=== PATIENT | female | born 1955 | race Caucasian/White ===

== ENCOUNTER 2016-05-19 16:58 | Observation (INO) | payer BC, MEDICARE ==
[~2016-05-19] VITALS: Ht 167.6 cm; Wt 128.1 kg
[~2016-05-19 16:58] MED LIST: ALBU2.5V7 PO; ASPI81TA2 PO; ATOR10TA20 PO; AZIT250T6 PO; BACL-1 PO; FURO40TA5 PO; GABA-329 PO; INSU100I3 SQ; INSU300I SQ; LANS30CA44 PO; LISI-127 PO; METF500T7 PO; METH4TAB15 PO; METO10TA3 PO; MOME13HF2 INH; NITR0.4T39 PO; OXYC15TA PO; POTA-81 PO; SERT100T12 PO; SPIR25TA4 PO; TAPE200T PO
--- OUTSIDE RECORDS SUMMARY | 2016-05-19 17:03 | XMS REPORT | Continuity of Care Document ---
Author Author [facility] Organization [facility] Address Unknown Phone Unavailable Support Name Relationship Address Phone VAN HARDEN Caregiver [address] [place] [address] Unavailable APOLINAR FISHER MD Caregiver [address] [place] [address] Unavailable HALEYWINSTON BRIZUELA Tabitha Next Of Kin [address] [place] [address] Insurance Providers Guarantor Radhika Guadarrama Address [address] [place] [address] Email DENIED/NO TO PT [facility] Number [id number] Subscriber's Name Winston Guadarrama Relationship 01 Spouse Group Number [id number] Payer Medicare Part A Only Policy Number [id number] Subscriber's Name Radhika Guadarrama Relationship 18 Self Advance Directives Directive Response Recorded Date/Time Advanced Directives Type None 07/18/13 3:33pm Ordered Resuscitation Status Full Code 07/18/13 2:43pm Chief Complaint and Reason for Visit Chief Complaint Low Back Pain or Injury Reason for Visit Lumbar pain Problems Active Problems Medical Problem Onset Date Status Abrasion of face Unknown Acute Acute superficial venous thrombosis of right lower extremity Unknown Acute Acute superficial venous thrombosis of right lower extremity Unknown Acute Back pain, chronic Unknown Chronic Chest pain, rule out acute myocardial infarction Unknown Acute Chest pain, rule out acute myocardial infarction Unknown Acute Dyslipidemia Unknown Chronic Epistaxis Unknown Acute Epistaxis Unknown Acute GERD (gastroesophageal reflux disease) Unknown Chronic HTN (hypertension) Unknown Chronic Hypokalemia Unknown Resolved Lumbar pain Unknown Acute Morbid obesity with BMI of 40.0-44.9, adult Unknown Chronic Neck pain, acute Unknown Acute Tobacco dependence Unknown Acute Past Problems Medical Problem Onset Date Hemorrhoids Unknown Medications Current Home Medications Medication Dose Units Route Directions Days Qty Instructions Start Date Albuterol Sulfate 2.5 Mg/3 Ml Vial.neb 2.5 Mg Oral Every 6 Hours as needed for Prn Orders 03/09/16 Aspirin 81 Mg Tab.chew 81 Mg Oral Daily 01/04/15 Atorvastatin Calcium (Lipitor) 10 Mg Tablet 10 Mg Oral Daily Azithromycin 250 Mg Tablet 250 Mg Oral Daily 03/09/16 Baclofen 10 Mg Tablet 10 Mg Oral Four Times Daily 06/06/11 Furosemide 40 Mg Tablet 40 Mg Oral Twice A Day 01/04/15 Gabapentin 800 Mg Tablet 800 Mg Oral Three Times A Day 01/04/15 Insulin Aspart (Novolog Flexpen) 1 Unit Pen 10 Unit Sub-Q Four Times Daily 03/09/16 Insulin Glargine,Hum.rec.anlog (Toujeo Solostar) 300 Unit/1 Ml Insuln.pen 20 Unit Sub-Q Bedtime 03/09/16 Lansoprazole (Prevacid) 30 Mg Capsule.dr 30 Mg Oral Twice A Day 09/02/09 Lisinopril 10 Mg Tablet 10 Mg Oral Daily 09/02/09 Metformin Hcl (Metformin Hcl Er) 500 Mg Tab.er.24h 500 Mg Oral Twice A Day 01/04/15 Methylprednisolone 4 Mg/Dose Tablet 1 Dose Oral As Directed 03/09 Metoclopramide Hcl 10 Mg Tablet 10 Mg Oral Four Times Daily 11/05 Mometasone Furoate (Asmanex Hfa) 13 Gm Hfa.aer.ad 2 Puff Inhalation Twice A Day as needed for Prn Orders 03/09/16 Nitroglycerin 0.4 Mg Tab.subl 0.4 Mg Oral Every 5 Minutes X 3 as needed for Chest Tightness 03/09/16 Oxycodone Hcl 15 Mg Tablet 15-30 Mg Oral Every 3-4 Hours 07/18/13 Potassium Chloride 20 Meq Tablet.er 20 Meq Oral Twice Daily With Meals 05/16/14 Sertraline Hcl (Sertraline) 100 Mg Tablet 100 Mg Oral Bedtime 09/15 Spironolactone 25 Mg Tablet 25 Mg Oral Daily 01/04/15 Tapentadol Hcl (Nucynta Er) 200 Mg Tab.er.12h 200 Mg Oral Every 12 Hours 08/08/15 Past Home Medications Medication Directions Ordered Status Aspirin (Aspir 81) 81 Mg Tablet.dr, Oral 3X Week 09/02/09 Discontinued Citalopram Hydrobromide (Celexa) 40 Mg Tablet, 1 Tab Oral Daily 02/10/14 Discontinued Furosemide , 11/27/08 Discontinued Hydrocodone Bit/Acetaminophen (Lortab 10-500 Tablet) 1 Tab Tablet, 1 Tab Oral As Needed 06/06/11 Discontinued Hydrocodone Bit/Acetaminophen (Lortab 10-500 Tablet) 1 Tab Tablet, 1 Tab Oral As Needed 09/02/09 Discontinued Metoclopramide Hcl 10 Mg Tablet, 1 Tab Oral Twice A Day 09/02/09 Discontinued Oxycodone Hcl/Acetaminophen (Percocet 10/325 Mg Tablet) 1 Tab Tablet, 1 Tab Oral As Needed 11/06/11 Discontinued Tapentadol Hcl (Nucynta) 100 Mg Tablet, 200 Mg Oral Every 12 Hours 01/04/15 Discontinued Social History Social History Problem Response Recorded Date/Time Onset Date Status Chewing Tobacco Status No 03/09/2016 5:08pm Not Applicable Not Applicable Hx Substance Use No 03/09/2016 5:08pm Not Applicable Not Applicable Hx Alcohol Use No 03/09/2016 5:08pm Not Applicable Not Applicable Has the pt used tobacco in the last 12 months Yes 07/18/2013 3:34pm Not Applicable Not Applicable Tobacco Usage smoke 07/18/2013 4:39pm Not Applicable Not Applicable Query Response Start Date Stop Date Smoking Status Heavy Smoker Hospital Discharge Instructions No hospital discharge instructions. Plan of Care Discharge Date 03/09/16 6:50pm Disposition DISCHARGED HOME, SELF-CARE Condition at Discharge Stable Instructions/Education Provided Sacroiliac Joint Pain Prescriptions See Medication Section Referrals VAN HARDEN Address: [address] [phone] Note: follow up this week if not improving. Additional Instructions/Education COMPLETE STEROIDS PRESCRIBED BY YOUR DOCTOR. ICE PACKS, 20 MINUTES ON AND 20 MINUTES OFF, TOLERATED. CONTINUE PAIN MEDICATION PRESCRIBED. Functional Status No functional status results. Allergies, Adverse Reactions, Alerts Allergen Type Severity Reaction Status Last Updated Penicillin Allergy Unknown EDEMA Active 03/09/16 Sulfa (Sulfonamide Antibiotics) Allergy Unknown Active 03/09/16 BANDAIDE Allergy Unknown Active 05/15/14 Immunizations Query Response on File Recorded Date/Time Hx Influenza Vaccination Y DEC 2013 05/16/14 1:09am Hx Pneumococcal Vaccination Y fall05/16/14 1:09am Hx Tetanus, Diptheria, Pertussis Y UNKNOWN 05/16/14 1:09am Hx Influenza Vaccination Y DEC 2013 05/16/14 1:09am Hx Tetanus, Diptheria, Pertussis Y UNKNOWN 03/16/15 1:09am DTaP Vaccine History JANUARY 04, 2015 03/09/16 5:08pm Influenza Vaccine Hx DECEMBER 2014 03/09/16 5:08pm Tdap Vaccine Hx 01/04/15 01/04/15 7:02am Vital Signs Acute Vital Signs Vital Response Date/Time Temperature (Fahrenheit) 97.8 deg F (96.8 - 99.1) 03/09/2016 6:50pm Temperature (Calculated Celsius) 36.67096 degrees C (36.0 - 37.3) 03/09/2016 6:50pm Pulse Rate (adult) 85 bpm (60 - 100) 03/09/2016 6:50pm Respiratory Rate 14 breaths/min (10 - 20) 03/09/2016 6:50pm O2 Sat by Pulse Oximetry 94 % (90 - 100) 03/09/2016 6:50pm Blood Pressure 119/67 mm Hg 03/09/2016 6:50pm Blood Pressure 119/67 mm Hg 03/09/2016 6:50pm Height (Feet) 5 feet 03/09/2016 4:35pm Height (Inches) 7.00 inches 03/09/2016 4:35pm Weight (Kilograms) 121.000 kg 03/09/2016 4:35pm Body Mass Index (BMI) 41.0 03/09/2016 4:35pm Results Laboratory Results Test Name Result Units Flags Reference Collection Date/Time Result Date/ Time Comments Icterus Index < 2 0-7 12/22/2015 4:56pm 12/22/2015 5:09pm Chemistry Specimen Hemolysis < 15 0-25 12/22/2015 4:56pm 12/22/2015 5 :09pm 0-25: Specimen Exhibited No Hemolysis. Turbidity < 20 0-20 12/22/2015 4:56pm 12/22/2015 5:09pm Sodium Level 144 MEQ/L 134-144 12/22/2015 4:56pm 12/22/2015 5:09pm Potassium Level 3.9 MEQ/L 3.6-5 12/22/2015 4:56pm 12/22/2015 5:09pm Chloride Level 100 MEQ/L 98-107 12/22/2015 4:56pm 12/22/2015 5:09pm Carbon Dioxide Level 30 MEQ/L 22-30 12/22/2015 4:56pm 12/22/2015 5: 09pm Anion Gap 14 MEQ/L 5-15 12/22/2015 4:56pm 12/22/2015 5:09pm Blood Urea Nitrogen 12.0 MG/DL 7-17 12/22/2015 4:56pm 12/22/2015 5: 09pm Creatinine 0.8 MG/DL 0.7-1.2 12/22/2015 4:56pm 12/22/2015 5:09pm BUN/Creatinine Ratio 15 RATIO 6-26 12/22/2015 4:56pm 12/22/2015 5:09pm Glomerular Filtration Rate Calc 74 12/22/2015 4:56pm 12/22/2015 5: 09pm Glucose Level 149 MG/DL H 65-110 12/22/2015 4:56pm 12/22/2015 5:09pm Calculated Osmolality 280 MOSM/KG 261-280 12/22/2015 4:56pm 12/22/2015 5:09pm Calcium Level 9.4 MG/DL 8.4-10.2 12/22/2015 4:56pm 12/22/2015 5:09pm Hemoglobin A1c 7.3 % 6.1-7.9 12/22/2015 4:56pm 12/22/2015 5:07pm <6.0 NON-DIABETIC RANGE 6.1-7.9 [facility] TARGET RANGE >8.0 ACTION SUGGESTED Procedures Procedure Status Date Provider(s) Routine venipuncture Completed 12/22/15 Metabolic panel total ca Completed 12/22/15 Glycosylated hemoglobin test Completed 12/22/15 Encounters Encounter Location Arrival/Admit Date Discharge/Depart Date Attending Provider Departed Emergency Room [facility] 03/09/16 4:34pm 03/09/16 6: 50pm APOLINAR FISHER MD Registered Clinic [facility] 12/22/15 4:46pm VAN HARDEN Recent Diagnosis
--- OUTSIDE RECORDS SUMMARY | 2016-05-19 17:03 | XMS REPORT | Summary of Care ---
Author Author Houston Russ M.D. Organization Unknown Address Unknown Phone Unavailable Care Team Providers Care Railway Shunter Name Role Phone Houston Russ M.D. Unavailable Unavailable Kaushik Redmond Unavailable Unavailable Functional Status Name Dates Details Functional status health issues are not documented Status: Name Dates Details Cognitive status health issues are not documented Status: Problems Name Dates Details Active medical history not documented Status: Medications Name Dates Details Atorvastatin Calcium 10 MG Oral Tablet TAKE 1 TABLET DAILY DIRECTED. * Start 07-May-2016 Active Lansoprazole 30 MG Oral Capsule Delayed Release TAKE 1 CAPSULE TWICE DAILY. * Refills: 0 * Start 07-May-2016 Active MetFORMIN HCl - 500 MG Oral Tablet Take 1 tablet twice daily * Quantity: 180 Refills: 0 * Start 07-May-2016 Active Metoclopramide HCl - 10 MG Oral Tablet TAKE 1 TABLET 4 TIMES DAILY, BEFORE MEALS AND AT BEDTIME. * Refills: 0 * Start 07-May-2016 Active Sertraline HCl - 100 MG Oral Tablet TAKE 1 AND 1/2 TABLETS DAILY. * Refills: 0 * Start 07-May-2016 Active Furosemide 40 MG Oral Tablet Take one tablet by mouth twice a day * Quantity: 60 Refills: 0 * Start 07-May-2016 Active Lisinopril 10 MG Oral Tablet TAKE 1 TABLET EVERY DAY * Quantity: 90 Refills: 0 * Start 07-May-2016 Active Potassium Chloride 20 MEQ Oral Packet TAKE 1 PACKET TWICE DAILY, 1/2 HOUR BEFORE MEALS. * Refills: 0 * Start 07-May-2016 Active Spironolactone 25 MG Oral Tablet TAKE 1 TABLET BY MOUTH DAILY * Quantity: 30 Refills: 0 * Start 07-May-2016 Active Gabapentin 800 MG Oral Tablet TAKE 1 TABLET 3 TIMES DAILY. * Refills: 0 * Start 07-May-2016 Active Aspirin 81 MG Oral Tablet Delayed Release take 1 tablet by mouth every day * Refills: 0 * Start 07-May-2016 Active OxyCODONE HCl - 15 MG Oral Tablet TAKE 1 TABLET EVERY 3-4 HOURS NEEDED FOR PAIN. * Refills: 0 * Start 07-May-2016 Active Nucynta ER 200 MG Oral Tablet Extended Release 12 Hour Take 1 tablet twice daily * Refills: 0 * Start 07-May-2016 Active Baclofen 10 MG Oral Tablet TAKE 1 TABLET 4 TIMES DAILY. * Refills: 0 * Start 07-May-2016 Active NovoLIN 70/30 (70-30) 100 UNIT/ML Subcutaneous Suspension INJECT 10 UNIT 4 times daily * Refills: 0 * Start 07-May-2016 Active Toujeo SoloStar 300 UNIT/ML Subcutaneous Solution Pen-injector INJECT 20 UNIT Bedtime * Refills: 0 * Start 07-May-2016 Active Fluticasone Propionate 50 MCG/ACT Nasal Suspension 2 squirts ea nostril once daily * Quantity: 1 Refills: 2 * Start 07-May-2016 Active 16 GM Bottle Allergies and Adverse Reactions Name Dates Details Penicillins (Allergy) Status: Active Sulfa Drugs (Allergy) Status: Active Adhesive Tape (Allergy) Status: Active Past Medical History Name Dates Details History of degenerative disc disease (V13.59, Z87.39) Status: Resolved History of gastric ulcer (V12.79, Z87.19) Status: Resolved Procedures Procedure Dates Details History of Back Surgery History of Hysterectomy History of Cholecystectomy Procedures not documented Immunization Name Dates Details Immunizations not documented Family History Name Dates Details Family history of cardiac disorder (V17.49, Z82.49) Status: Active Family history of hypertension (V17.49, Z82.49) Status: Active Family history of hyperlipidemia (V18.19, Z83.49) Status: Active Name Dates Details Family history of Diabetes type 2, controlled (250.00, E11.9) Status: Active Name Dates Details Family history of Diabetes type 2, controlled (250.00, E11.9) Status: Active Social History Name Dates Details - Status: Name Dates Details Current every day smoker Vital Signs Date Test Result Details 07-May-2016 14:38 Temperature 97.3 f Status: Comments: Method: Heart Rate 114 /min Status: Comments: Location: ; Physical Findings 20 Status: Comments: Respiration Height 66 in Status: Weight 276 lb Status: Physical Findings 96 Status: Comments: O2 Saturation Body Mass Index Calculated 44.55 kg/m2 Status: Body Surface Area Calculated 2.29 m2 Status: Results Date Description Value Details Results not documented Plan of Care Name Dates Details Planned Observations Planned Goals not documented Planned Encounters Appointment; Provider: Houston Russ M.D. On 18-Jun-2016 13:00 Instructions Name Dates Details Instructions not documented Encounters Appointment; Houston Russ M.D. Encounter Diagnosis: Problem not documented On 07-May-2016 13:30
--- OUTSIDE RECORDS SUMMARY | 2016-05-19 17:04 | XMS REPORT | Continuity of Care Document ---
Author Author [facility] Organization [facility] Address Unknown Phone Unavailable Support Name Relationship Address Phone JODY CAMPOS DO Caregiver [facility] [address] [place] [address] DERECKVAN NIEVES Caregiver [address] [place] [address] WINSTON GUADARRAMA Next Of Kin [address] [place] [id number] Insurance Providers Payer Name Policy Number Subscriber Name Relationship [facility] [id number] Winston Guadarrama 01 Spouse Advance Directives Directive Response Recorded Date/Time Advanced Directives Type None 07/18/13 3:33pm Ordered Resuscitation Status Full Code 07/18/13 2:43pm Problems Medical Problems Problem Onset Date Status Chest pain, rule out acute myocardial infarction Unknown Active Chest pain, rule out acute myocardial infarction Unknown Active Dyslipidemia Unknown Active HTN (hypertension) Unknown Active Tobacco dependence Unknown Active GERD (gastroesophageal reflux disease) Unknown Active Back pain, chronic Unknown Active Morbid obesity with BMI of 40.0-44.9, adult Unknown Active Hypokalemia Unknown Resolved Acute superficial venous thrombosis of right lower extremity Unknown Active Acute superficial venous thrombosis of right lower extremity Unknown Active Epistaxis Unknown Active Epistaxis Unknown Active Medications Medication Dose Route Sig Days/Qty Instructions Order Date Discontinued Date Status Aspirin PO 3X WEEK 09/02/09 07/18/13 Discontinued Sucralfate 2 Tsp PO FOUR TIMES DAILY 09/02/09 Active [Furosemide] 11/27/08 09/02/09 Discontinued Lisinopril 10 Mg PO DAILY 09/02/09 Active Metoclopramide Hcl 1 Tab PO TWICE A DAY 09/02/09 06/06/11 Discontinued Lansoprazole 30 Mg PO DAILY 09/02/09 Active [Vitamin] PO DAILY 09/02/09 Active Hydrocodone Bit/Acetaminophen 1 Tab PO NEEDED 09/02/09 03/11/10 Discontinued Furosemide 10 Mg PO DAILY 09/02/09 Active Gabapentin 600 Mg PO THREE TIMES A DAY 06/06/11 Active Baclofen 10 Mg PO TWICE A DAY 06/06/11 Active Hydrocodone Bit/Acetaminophen 1 Tab PO NEEDED 06/06/11 11/06/11 Discontinued Metoclopramide Hcl 10 Mg PO TWICE A DAY 11/06/11 Active Oxycodone Hcl/Acetaminophen 1 Tab PO NEEDED 11/06/11 07/18/13 Discontinued Atorvastatin Calcium 10 Mg PO DAILY 07/18/13 Active Oxycodone Hcl 15 Mg PO EVERY 3-4 HOURS 07/18/13 Active Citalopram Hydrobromide 1 Tab PO DAILY 02/10/14 Active Clonazepam 1 Tab PO BEDTIME 02/10/14 Active Tapentadol HCl 02/10/14 Active Rivaroxaban 15 Mg PO TWICE DAILY WITH MEALS Take 1 tablet, by mouth, 2 times a day with meals. 05/16/14 Active Potassium Chloride 20 Meq PO TWICE DAILY WITH MEALS 05/16/14 Active Social History Social History Problem Response Recorded Date/Time Hx Substance Use No 05/16/2014 1:09am Hx Alcohol Use No 05/16/2014 1:09am Has the pt used tobacco in the last 12 months Yes 07/18/2013 3:34pm Tobacco Usage smoke 07/18/2013 4:39pm Query Response Start Date Stop Date Smoking Status Heavy Smoker Hospital Discharge Instructions No hospital discharge instructions. Plan of Care No plan of care. Functional Status Query Response Date Recorded Physical Hygiene Self May 16, 2014 1:09am Disabilities Visual May 16, 2014 1:09am Devices Used Walker May 16, 2014 1:09am Dressing Self May 16, 2014 1:09am Ambulation Self May 16, 2014 1:09am Diet Self May 16, 2014 1:09am Mental Status Alert May 16, 2014 1:09am Disabilities Visual May 16, 2014 1:09am Devices Used Walker May 16, 2014 1:09am Physical Hygiene Self May 16, 2014 1:09am Dressing Self May 16, 2014 1:09am Ambulation Self May 16, 2014 1:09am Diet Self May 16, 2014 1:09am Allergies, Adverse Reactions, Alerts Allergen Type Severity Reaction Status Last Updated Penicillin Allergy Unknown EDEMA Active 05/15/14 Sulfa (Sulfonamide Antibiotics) Allergy Unknown Active 05/15/14 BANDAIDE Allergy Unknown Active 05/15/14 Immunizations Name Given Type Hx Influenza Vaccination Y DEC 2013 Historical Hx Pneumococcal Vaccination Y fall Historical Hx Tetanus, Diptheria, Pertussis Y UNKNOWN Historical Hx Influenza Vaccination Y DEC 2013 Historical Hx Tetanus, Diptheria, Pertussis Y UNKNOWN Historical Vital Signs Acute Vital Signs Vital Response Date/Time Temperature (Fahrenheit) 96.4 deg F (96.8 - 99.1) Temperature (Calculated Celsius) 35.58292 degrees C (36.0 - 37.3) Pulse Rate (adult) 77 bpm (60 - 100) Respiratory Rate 20 breaths/min (10 - 20) O2 Sat by Pulse Oximetry 95 % (90 - 100) Blood Pressure 159/87 mm Hg Height 5 ft 6 in Weight 281 lb Body Mass Index 45.0 kg/m^2 Results Test Source Date Result Interp. Ref. Range Comments Activated Partial Thromboplast Time July 18, 2013 1:28pm 30.1 SEC N 24- 36 Alanine Aminotransferase (ALT/SGPT) July 18, 2013 1:28pm 36 U/L N 9-52 Albumin July 18, 2013 1:28pm 3.8 G/DL N 3.5-5.0 Albumin/Globulin Ratio July 18, 2013 1:28pm 1.3 RATIO N 1.1-2.2 Alkaline Phosphatase July 18, 2013 1:28pm 81 U/L N 38-126 Amylase Level November 06, 2011 9:30pm 57 U/L N 30-110 Anion Gap April 06, 2014 2:41pm 8 MEQ/L N 5-15 Aspartate Amino Transf (AST/SGOT) July 18, 2013 1:28pm 20 U/L N 14-36 B-Type Natriuretic Peptide December 28, 2010 12:00am < 15 PG/ML L 15-100 BUN/Creatinine Ratio April 06, 2014 2:41pm 10 RATIO N 6-26 Band Neutrophils # December 28, 2010 9:30pm 0.2 T/MM3 - Band Neutrophils % December 28, 2010 9:30pm 1.0 % N 0-6 Basophils # (Auto) September 30, 2013 1:45pm 0.0 T/MM3 N 0-0.[address] RODGERS -- CALL CRITICALS TO [phone] Basophils (%) (Auto) September 30, 2013 1:45pm 0.4 % N 0-[address] RODGERS -- CALL CRITICALS TO [phone] Blood Urea Nitrogen April 06, 2014 2:41pm 6.0 MG/DL L 7-17 Calcium Level April 06, 2014 2:41pm 8.8 MG/DL N 8.4-10.2 Calculated Osmolality April 06, 2014 2:41pm 280 MOSM/KG N 261-280 Carbon Dioxide Level April 06, 2014 2:41pm 33 MEQ/L H 22-30 Chemistry Specimen Hemolysis April 06, 2014 2:41pm < 15 0-25 0-25 : No Hemolysis.26-70: Slight Hemolysis - can falsely elevate K and Urine Protein. 71-285: Moderate Hemolysis - can falsely elevate K, Troponin I, CA 19-9, PTH, CSF GLucose, and Urine Protein, and can falsely decrease Phenytoin. 286-999: Gross Hemolysis - can falsely elevate K, Troponin I, CA 19-9, PTH, CSF Glucose, and Urine Protine, and can falsely decrease Phenytoin. Recommend specimen recollection. Chloride Level April 06, 2014 2:41pm 103 MEQ/L N 98-107 Cholesterol Level July 19, 2013 1:15am 131 MG/DL L 132-199 Cholesterol/HDL Ratio July 19, 2013 1:15am 3.7 RATIO N 0-4.0 Conjugated Bilirubin November 06, 2011 9:30pm 0.00 MG/DL N 0.00-0.30 Creatinine April 06, 2014 2:41pm 0.6 MG/DL L 0.7-1.2 D-Dimer July 18, 2013 1:28pm < 150 NG/ML 0-230 <224 NG/ML=PRESUMPTIVE NEGATIVE FOR PE OR DVT>224 NG/ML=ADDITIONAL EVALUATION FOR PE OR DVT RECOMMENDED Eosinophils # (Auto) September 30, 2013 1:45pm 0.1 T/MM3 N 0-0.[address] RODGERS -- CALL CRITICALS TO [phone] Eosinophils # (Manual) December 28, 2010 9:30pm 0.3 T/MM3 N 0-0.5 Eosinophils % (Manual) December 28, 2010 9:30pm 2.0 % N 0-4 Eosinophils (%) (Auto) September 30, 2013 1:45pm 0.9 % N 0-[address] RODGERS -- CALL CRITICALS TO [phone] Globulin July 18, 2013 1:28pm 2.9 G/DL N 2.4-3.6 Glomerular Filtration Rate Calc April 06, 2014 2:41pm 103 - Glucose Level April 06, 2014 2:41pm 187 MG/DL H 65-110 HDL Cholesterol Direct July 19, 2013 1:15am 35 MG/DL L 40-60 Hematocrit September 30, 2013 1:45pm 44.4 % N 36-[address] RODGERS -- CALL CRITICALS TO [phone] Hemoglobin September 30, 2013 1:45pm 14.7 GM/DL N 12-[address] RODGERS -- CALL CRITICALS TO [phone] Icterus Index April 06, 2014 2:41pm < 2 0-7 Immature Granulocyte # (Auto) September 30, 2013 1:45pm 0.06 T/MM3 H 0.00- 0.[address] RODGERS -- CALL CRITICALS TO [phone] Immature Granulocyte % (Auto) September 30, 2013 1:45pm 0.8 % H 0.0-0.[address] RODGERS -- CALL CRITICALS TO [phone] LDL Cholesterol, Calculated July 19, 2013 1:15am 59.0 L 66-159 Lab Scanned Report April 06, 2014 10:06pm LAB TEST FORM REQUEST - Lipase November 06, 2011 9:30pm 55 U/L N 23-300 Lymphocytes # (Auto) September 30, 2013 1:45pm 1.5 T/MM3 N 1-4.[address] RODGERS -- CALL CRITICALS TO [phone] Lymphocytes # (Manual) December 28, 2010 9:30pm 4.8 T/MM3 N 1-4.8 Lymphocytes % (Manual) December 28, 2010 9:30pm 28.0 % N 23-45 Lymphocytes (%) (Auto) September 30, 2013 1:45pm 19.8 % L 23-[address] RODGERS -- CALL CRITICALS TO [phone] Magnesium Level July 18, 2013 1:28pm 1.6 MG/DL N 1.6-2.3 COMMENT blood in lab Mean Corpuscular Hemoglobin September 30, 2013 1:45pm 29.8 UUG N 26-[address] RODGERS -- CALL CRITICALS TO [phone] Mean Corpuscular Hemoglobin Concent September 30, 2013 1:45pm 33.1 GM/DL N 31 -[address] RODGERS -- CALL CRITICALS TO [phone] Mean Corpuscular Volume September 30, 2013 1:45pm 89.9 UM3 N 80-[address] RODGERS -- CALL CRITICALS TO [phone] Mean Platelet Volume September 30, 2013 1:45pm 9.9 UM3 N 9.4-12.[address] RODGERS -- CALL CRITICALS TO [phone] Monocytes # (Auto) September 30, 2013 1:45pm 0.6 T/MM3 N 0-0.[address] RODGERS -- CALL CRITICALS TO [phone] Monocytes # (Manual) December 28, 2010 9:30pm 1.2 T/MM3 H 0-0.8 Monocytes % (Manual) December 28, 2010 9:30pm 7.0 % N 0-9.0 Monocytes (%) (Auto) September 30, 2013 1:45pm 7.5 % N 0-9.[address] RODGERS -- CALL CRITICALS TO [phone] NW-Omz-W-Type Natriuretic Peptide July 18, 2013 1:28pm 56 PG/ML N 0-175 Rule in cut points: <50 years old=450; 50-75 years old=900; >75 years old=1800; When utilizing ProBNP rule-in cut points, adjustment for impaired renal function is typically not required. Neutrophils # (Auto) September 30, 2013 1:45pm 5.3 T/MM3 N 1.8-7.[address] RODGERS -- CALL CRITICALS TO [phone] Neutrophils # (Manual) December 28, 2010 9:30pm 10.0 T/MM3 H 1.8-7.7 Neutrophils % (Manual) December 28, 2010 9:30pm 58.0 % N 33-66 Neutrophils (%) (Auto) September 30, 2013 1:45pm 70.6 % H 33-[address] RODGERS -- CALL CRITICALS TO [phone] Platelet Count September 30, 2013 1:45pm 211 T/MM3 N 130-[address] RODGERS -- CALL CRITICALS TO [phone] Potassium Level April 06, 2014 2:41pm 3.8 MEQ/L N 3.6-5 Prealbumin July 18, 2013 1:28pm 25.1 MG/DL N 17.6-36.0 COMMENT blood in lab Prothromb Time International Ratio July 18, 2013 1:28pm 0.91 N 0.86-1.10 THERAPUTIC RANGE=2.00-3.00 FOR ANTI-THROMBOSIS THERAPUTIC RANGE=2.50-3.50 FOR IMPLANTED VALVE RDW Standard Deviation September 30, 2013 1:45pm 46.5 FL N 36.9-50.[address] RODGERS -- CALL CRITICALS TO [phone] Reactive Lymphocytes # December 28, 2010 9:30pm 0.7 T/MM3 H 0-0 Reactive Lymphocytes % December 28, 2010 9:30pm 4.0 % H 0-0 Red Blood Count September 30, 2013 1:45pm 4.94 M/MM3 N 4.00-5.[address] RODGERS -- CALL CRITICALS TO [phone] Sodium Level April 06, 2014 2:41pm 144 MEQ/L N 134-144 Tests Not Done November 27, 2008 10:45am Not done - Has specimen been collected/obtained? Y Thyroid Stimulating Hormone (TSH) July 18, 2013 1:28pm 2.19 MIU/L N 0.47- 4.68 COMMENT blood in lab Total Bilirubin July 18, 2013 1:28pm 0.30 MG/DL N 0.20-1.30 Total Protein July 18, 2013 1:28pm 6.7 G/DL N 6.3-8.2 Triglycerides Level July 19, 2013 1:15am 185 MG/DL H 35-135 Troponin I July 19, 2013 1:15am < 0.012 ng/ml 0-0.12 Turbidity April 06, 2014 2:41pm < 20 0-20 Unconjugated Bilirubin November 06, 2011 9:30pm 0.00 MG/DL N 0.00-1.10 Urinalysis Comment September 30, 2013 1:40pm Microscopic not ind. - ORDERED BY DR RODGERS -- CALL CRITICALS TO [phone] Urine Bilirubin September 30, 2013 1:40pm Negative - ORDERED BY DR RODGERS -- CALL CRITICALS TO [phone] Urine Blood September 30, 2013 1:40pm Negative - ORDERED BY DR RODGERS -- CALL CRITICALS TO [phone] Urine Collection Type September 30, 2013 1:40pm Cleancatch-midstream - ORDERED BY DR RODGERS -- CALL CRITICALS TO [phone] Urine Color September 30, 2013 1:40pm Yellow - ORDERED BY DR RODGERS -- CALL CRITICALS TO [phone] Urine Glucose (UA) September 30, 2013 1:40pm Negative - ORDERED BY DR RODGERS -- CALL CRITICALS TO [phone] Urine Ketones September 30, 2013 1:40pm Negative - ORDERED BY DR RODGERS - - CALL CRITICALS TO [phone] Urine Leukocyte Esterase September 30, 2013 1:40pm Negative - ORDERED BY DR RODGERS -- CALL CRITICALS TO [phone] Urine Microscopic Not Indicated November 06, 2011 9:37pm Not indicated - Has specimen been collected/obtained? Y Urine Nitrite September 30, 2013 1:40pm Negative - ORDERED BY DR RODGERS - - CALL CRITICALS TO [phone] Urine Protein September 30, 2013 1:40pm Negative - ORDERED BY DR RODGERS - - CALL CRITICALS TO [phone] Urine Specific [place] September 30, 2013 1:40pm 1.015 - ORDERED BY DR RODGERS -- CALL CRITICALS TO [phone] Urine Turbidity September 30, 2013 1:40pm Clear - ORDERED BY DR RODGERS -- CALL CRITICALS TO [phone] Urine Urobilinogen September 30, 2013 1:40pm 0.2 EU/DL - ORDERED BY DR RODGERS -- CALL CRITICALS TO [phone] Urine pH September 30, 2013 1:40pm 6.5 - ORDERED BY DR RODGERS -- CALL CRITICALS TO [phone] VLDL Cholesterol July 19, 2013 1:15am 37.0 MG/DL H 0-28 Vitamin B12 Level July 18, 2013 1:28pm 372 PG/ML N [phone] COMMENT blood in lab White Blood Count September 30, 2013 1:45pm 7.5 T/MM3 N 4.5-11.[address] RODGERS -- CALL CRITICALS TO [phone] Gram Stain Groin June 06, 2011 10:15pm Procedures Procedure Status Date Provider(s) ROUTINE VENIPUNCTURE completed 04/06/14 METABOLIC PANEL TOTAL CA completed 04/06/14 Encounters Encounter Location Date/Time Departed Emergency Room [facility] 05/15/14 10:09pm Registered Clinic [facility] 04/06/14 2:33pm Recent Diagnosis
--- OUTSIDE RECORDS SUMMARY | 2016-05-19 17:04 | XMS REPORT | Continuity of Care Document ---
Author Author [facility] Organization [facility] Address Unknown Phone Unavailable Support Name Relationship Address Phone MAYKEL WALLER MD Caregiver [address] [place] [address] [place] [phone] VAN HARDEN Caregiver [address] [facility] [place] [address] W[place] GUADARRAMA Next Of Kin [address] [place] [phone] Insurance Providers Payer Name Policy Number Subscriber Name Relationship [facility] [place] [id number] Winston Guadarrama 01 Spouse Advance Directives Directive [...] thrombosis of right lower extremity Unknown Active Medications Medication Dose Route Sig Days/Qty Instructions Order Date Discontinued Date Status Aspirin PO 3X WEEK 09/02/09 07/18/13 Discontinued Sucralfate 2 Tsp PO FOUR TIMES DAILY 09/02/09 Active [Furosemide] 11/27/08 09/02/09 Discontinued Hydrochlorothiazide 25 Mg PO DAILY 09/02/09 Active Lisinopril 10 Mg PO DAILY 09/02/09 Active Metoclopramide Hcl 1 Tab PO TWICE A DAY 09/02/09 06/06/11 Discontinued Lansoprazole 30 Mg PO DAILY 09/02/09 Active Doxepin Hcl 1 Cap PO BEDTIME 09/02/09 Active [Vitamin] PO DAILY 09/02/09 Active [...] Mg PO EVERY 3-4 HOURS 07/18/13 Active Clindamycin Hcl 150 Mg PO THREE TIMES A DAY 07/18/13 Active Aspirin 1 Tab PO DAILY 02/10/14 Active Citalopram Hydrobromide 1 Tab PO DAILY 02/10/14 Active Clonazepam 1 Tab PO BEDTIME 02/10/14 Active Tapentadol HCl 02/10/14 Active Social History Social History Problem Response Recorded Date/Time Has the pt used tobacco in the last 12 months Yes 07/18/2013 3:34pm Tobacco Usage smoke 07/18/2013 4:39pm Query Response Start Date Stop Date Smoking Status Heavy Smoker Hospital Discharge Instructions No hospital discharge instructions. Plan of Care No plan of care. Functional Status Query Response Date Recorded Physical Hygiene Self February 10, 2014 7:35pm Disabilities Visual February 10, 2014 7:35pm Devices Used Glasses February 10, 2014 7:35pm Dressing Self February 10, 2014 7:35pm Ambulation Self February 10, 2014 7:35pm Diet Self February 10, 2014 7:35pm Mental Status Alert February 10, 2014 8:07pm Disabilities Visual February 10, 2014 7:35pm Devices Used Glasses February 10, 2014 7:35pm Physical Hygiene Self February 10, 2014 7:35pm Dressing Self February 10, 2014 7:35pm Ambulation Self February 10, 2014 7:35pm Diet Self February 10, 2014 7:35pm Allergies, Adverse Reactions, Alerts Allergen Type Severity Reaction Status Last Updated Penicillin Allergy Unknown EDEMA Active 02/10/14 Sulfa (Sulfonamide Antibiotics) Allergy Unknown Active 02/10/14 Immunizations Name Given Type Hx Influenza Vaccination Y DEC 2013 Historical Hx Pneumococcal Vaccination Y fall Historical Hx Influenza Vaccination Y DEC 2013 Historical Vital Signs Acute Vital Signs Vital Response Date/Time Temperature (Fahrenheit) 97.4 deg F (96.8 - 99.1) Temperature (Calculated Celsius) 36.26713 degrees C (36.0 - 37.3) Pulse Rate (adult) 99 bpm (60 - 100) Respiratory Rate 16 breaths/min (10 - 20) O2 Sat by Pulse Oximetry 95 % (90 - 100) Blood Pressure 148/77 mm Hg Height 5 ft 6 in [...] 9:30pm 57 U/L N 30-110 Anion Gap September 30, 2013 1:50pm 12 MEQ/L N 5-15 ADD-ON TO TESTING FROM [facility] TODAY; WE SHOULD HAVE ASPECIMEN/SJM Aspartate Amino Transf (AST/SGOT) July 18, 2013 1:28pm 20 U/L N 14-36 B-Type Natriuretic Peptide December 28, 2010 12:00am < 15 PG/ML L 15-100 BUN/Creatinine Ratio September 30, 2013 1:50pm 13 RATIO N 6-26 ADD-ON TO TESTING FROM [facility] TODAY; WE SHOULD HAVE ASPECIMEN/SJM Band Neutrophils # December 28, 2010 9:30pm 0.2 T/MM3 - Band Neutrophils % December 28, 2010 9:30pm 1.0 % N 0-6 Basophils # (Auto) September 30, 2013 1:45pm 0.0 T/MM3 N 0-0.[address] RODGERS -- CALL CRITICALS TO [phone] Basophils (%) (Auto) September 30, 2013 1:45pm 0.4 % N 0-[address] RODGERS -- CALL CRITICALS TO [phone] Blood Urea Nitrogen September 30, 2013 1:50pm 8.0 MG/DL N 7-17 ADD-ON TO TESTING FROM [facility] TODAY; WE SHOULD HAVE ASPECIMEN/SJM Calcium Level September 30, 2013 1:50pm 8.9 MG/DL N 8.4-10.2 ADD-ON TO TESTING FROM [facility] TODAY; WE SHOULD HAVE ASPECIMEN/SJM Calculated Osmolality September 30, 2013 1:50pm 273 MOSM/KG N 261-280 ADD- ON TO TESTING FROM [facility] TODAY; WE SHOULD HAVE ASPECIMEN/SJM Carbon Dioxide Level September 30, 2013 1:50pm 29 MEQ/L N 22-30 ADD-ON TO TESTING FROM [facility] TODAY; WE SHOULD HAVE ASPECIMEN/SJM Chloride Level September 30, 2013 1:50pm 100 MEQ/L N 98-107 ADD-ON TO TESTING FROM [facility] TODAY; WE SHOULD HAVE ASPECIMEN/SJM Cholesterol Level July 19, 2013 1:15am 131 MG/DL L 132-199 Cholesterol/HDL Ratio July 19, 2013 1:15am 3.7 RATIO N 0-4.0 Conjugated Bilirubin November 06, 2011 9:30pm 0.00 MG/DL N 0.00-0.30 Creatinine September 30, 2013 1:50pm 0.6 MG/DL L 0.7-1.2 ADD-ON TO TESTING FROM [facility] TODAY; WE SHOULD HAVE ASPECIMEN/SJM D-Dimer July 18, 2013 1:28pm < 150 NG/ML 0-230 <224 NG/ML=PRESUMPTIVE NEGATIVE FOR PE OR DVT>224 NG/ML=ADDITIONAL EVALUATION FOR PE OR DVT RECOMMENDED Eosinophils # (Auto) September 30, 2013 1:45pm 0.1 T/MM3 N 0-0.[address] RODGERS -- CALL CRITICALS TO [phone] Eosinophils # (Manual) December 28, 2010 9:30pm 0.3 T/MM3 N 0-0.5 Eosinophils % (Manual) December 28, 2010 9:30pm 2.0 % N 0-4 Eosinophils (%) (Auto) September 30, 2013 1:45pm 0.9 % N 0-[address] RODGERS -- CALL CRITICALS TO [phone] Globulin July 18, 2013 1:28pm 2.9 G/DL N 2.4-3.6 Glucose Level September 30, 2013 1:50pm 173 MG/DL H 65-110 ADD-ON TO TESTING FROM [facility] TODAY; WE SHOULD HAVE ASPECIMEN/SJM Hematocrit September 30, 2013 1:45pm 44.4 % N 36-[address] RODGERS -- CALL CRITICALS TO [phone] Hemoglobin September 30, 2013 1:45pm 14.7 GM/DL N 12-[address] RODGERS -- CALL CRITICALS TO [phone] LDL Cholesterol, Calculated July 19, 2013 1:15am 59.0 L 66-159 Lipase November 06, 2011 9:30pm 55 U/L N 23-300 Lymphocytes # (Auto) September 30, 2013 1:45pm 1.5 T/MM3 N 1-4.[address] RODGERS -- CALL CRITICALS TO [phone] Lymphocytes # (Manual) December 28, 2010 9:30pm 4.8 T/MM3 N 1-4.8 Lymphocytes % (Manual) December 28, 2010 9:30pm 28.0 % N 23-45 Lymphocytes (%) (Auto) September 30, 2013 1:45pm 19.8 % L 23-[address] RODGERS -- CALL CRITICALS TO [phone] Magnesium Level July 18, 2013 1:28pm 1.6 MG/DL N 1.6-2.3 COMMENT blood in lab Mean Corpuscular Hemoglobin September 30, 2013 1:45pm 29.8 UUG N 26-[address] RODGERS -- CALL CRITICALS TO [phone] Mean Corpuscular Hemoglobin Concent September 30, 2013 1:45pm 33.1 GM/DL N 31 -[address] RODGERS -- CALL CRITICALS TO [phone] Mean Corpuscular Volume September 30, 2013 1:45pm 89.9 UM3 N 80-[address] RODGERS -- CALL CRITICALS TO [phone] Mean Platelet Volume September 30, 2013 1:45pm 9.9 UM3 N 9.4-12.[address] RODGERS -- CALL CRITICALS TO [phone] Monocytes # (Auto) September 30, 2013 1:45pm 0.6 T/MM3 N 0-0.[address] ORDGERS -- CALL CRITICALS TO [phone] Monocytes # (Manual) December 28, 2010 9:30pm 1.2 T/MM3 H 0-0.8 Monocytes % (Manual) December 28, 2010 9:30pm 7.0 % N 0-9.0 Monocytes (%) (Auto) September 30, 2013 1:45pm 7.5 % N 0-9.[address] RODGERS -- CALL CRITICALS TO [phone] Neutrophils # (Auto) September 30, 2013 1:45pm 5.3 T/MM3 N 1.8-7.[address] RODGERS -- CALL CRITICALS TO [phone] Neutrophils # (Manual) December 28, 2010 9:30pm 10.0 T/MM3 H 1.8-7.7 Neutrophils % (Manual) December 28, 2010 9:30pm 58.0 % N 33-66 Neutrophils (%) (Auto) September 30, 2013 1:45pm 70.6 % H 33-[address] RODGERS -- CALL CRITICALS TO [phone] Platelet Count September 30, 2013 1:45pm 211 T/MM3 N 130-[address] RODGERS -- CALL CRITICALS TO [phone] Potassium Level September 30, 2013 1:50pm 3.2 MEQ/L L 3.6-5 [facility]; WE SHOULD HAVE ASPECIMEN/SJM Prealbumin July 18, 2013 1:28pm 25.1 MG/DL N 17.6-36.0 COMMENT blood in lab Prothromb Time International Ratio July 18, 2013 1:28pm 0.91 N 0.86-1.10 THERAPUTIC RANGE=2.00-3.00 FOR ANTI-THROMBOSIS THERAPUTIC RANGE=2.50-3.50 FOR IMPLANTED VALVE RDW Standard Deviation September 30, 2013 1:45pm 46.5 FL N 36.9-50.[address] RODGERS -- CALL CRITICALS TO [phone] Red Blood Count September 30, 2013 1:45pm 4.94 M/MM3 N 4.00-5.[address] RODGERS -- CALL CRITICALS TO [phone] Sodium Level September 30, 2013 1:50pm 141 MEQ/L N 134-144 [facility]; WE SHOULD HAVE ASPECIMEN/SJM Tests Not Done November 27, 2008 10:45am [...] 19, 2013 1:15am < 0.012 ng/ml 0-0.12 Unconjugated Bilirubin November 06, 2011 9:30pm 0.00 MG/DL N 0.00-1.10 Urine Bilirubin September 30, 2013 1:40pm Negative - ORDERED BY DR RODGERS -- CALL CRITICALS TO [phone] Urine Blood September 30, 2013 1:40pm Negative - ORDERED BY DR RODGERS -- CALL CRITICALS TO [phone] Urine Collection Type September 30, 2013 1:40pm Cleancatch-midstream - ORDERED BY DR RODGERS -- CALL CRITICALS TO [phone] Urine Color September 30, 2013 1:40pm Yellow - ORDERED BY DR RODGERS -- CALL CRITICALS TO [phone] Urine Glucose (UA) September 30, 2013 1:40pm Negative - ORDERED BY DR RODGERS -- CALL CRITICALS TO [phone] Urine Ketones September 30, 2013 1:40pm Negative - ORDERED BY DR RODGERS - - CALL CRITICALS TO [phone] Urine Leukocyte Esterase September 30, 2013 1:40pm Negative - ORDERED BY DR RODGERS -- CALL CRITICALS TO [phone] Urine Nitrite September 30, 2013 1:40pm Negative - ORDERED BY DR RODGERS - - CALL CRITICALS TO [phone] Urine Protein September 30, 2013 1:40pm Negative - ORDERED BY DR RODGERS - - CALL CRITICALS TO [phone] Urine Specific [place] September 30, 2013 1:40pm 1.015 - ORDERED BY DR RODGERS -- CALL CRITICALS TO [phone] Urine Turbidity September 30, 2013 1:40pm Clear - ORDERED BY DR RODGERS -- CALL CRITICALS TO [phone] Urine Urobilinogen September 30, 2013 1:40pm 0.2 EU/DL - ORDERED BY DR RODGERS -- CALL CRITICALS TO [phone] Urine pH September 30, 2013 1:40pm 6.5 - ORDERED BY DR RODGERS -- CALL CRITICALS TO [phone] VLDL Cholesterol July 19, 2013 1:15am 37.0 MG/DL H 0-28 Vitamin B12 Level July 18, 2013 1:28pm 372 PG/ML N [phone] COMMENT blood in lab White Blood Count September 30, 2013 1:45pm 7.5 T/MM3 N 4.5-11.[address] RODGERS -- CALL CRITICALS TO [phone] Chemistry Specimen Hemolysis September 30, 2013 1:50pm < 15 0-25 0-25: No Hemolysis.26-70: Slight Hemolysis - can falsely elevate K and Urine Protein. 71-285: Moderate Hemolysis - can falsely elevate K, Troponin I, CA 19-9, PTH, CSF GLucose, and Urine Protein, and can falsely decrease Phenytoin. 286-999: Gross Hemolysis - can falsely elevate K, Troponin I, CA 19-9, PTH, CSF Glucose, and Urine Protine, and can falsely decrease Phenytoin. Recommend specimen recollection. Urinalysis Comment September 30, 2013 1:40pm Microscopic not ind. - ORDERED BY DR RODGERS -- CALL CRITICALS TO [phone] Lab Scanned Report September 30, 2013 7:51pm LAB TEST FORM REQUEST [id number] - HDL Cholesterol Direct July 19, 2013 1:15am 35 MG/DL L 40-60 Turbidity September 30, 2013 1:50pm < 20 0-20 [facility]; WE SHOULD HAVE ASPECIMEN/SJM Reactive Lymphocytes % December 28, 2010 9:30pm 4.0 % H 0-0 Glomerular Filtration Rate Calc September 30, 2013 1:50pm 103 - ADD-[facility]; WE SHOULD HAVE ASPECIMEN/SJM Reactive Lymphocytes # December 28, 2010 9:30pm 0.7 T/MM3 H 0-0 Immature Granulocyte # (Auto) September 30, 2013 1:45pm 0.06 T/MM3 H 0.00- 0.[address] RODGERS -- CALL CRITICALS TO [phone] Immature Granulocyte % (Auto) September 30, 2013 1:45pm 0.8 % H 0.0-0.[address] RODGERS -- CALL CRITICALS TO [phone] Icterus Index September 30, 2013 1:50pm < 2 0-7 ADD-ON TO TESTING FROM [facility] TODAY; WE SHOULD HAVE ASPECIMEN/SJM KT-Yth-C-Type Natriuretic Peptide July 18, 2013 1:28pm 56 PG/ML N 0-175 Rule in cut points: <50 years old=450; 50-75 years old=900; >75 years old=1800; When utilizing ProBNP rule-in cut points, adjustment for impaired renal function is typically not required. Urine Microscopic Not Indicated November 06, 2011 9:37pm Not indicated - Has specimen been collected/obtained? Y Gram Stain Groin June 06, 2011 10:15pm Procedures No known history of procedures. Encounters Encounter Location Date/Time Departed Emergency Room [facility] 02/10/14 7:31pm Recent Diagnosis
--- NOTE | 2016-05-19 17:12 | NUR ---
DR FISHER IN
--- NOTE | 2016-05-19 17:13 | NUR ---
REPORT TO ZAHRA MILES
[2016-05-19] MEDS ORDERED: NORMAL SALINE 1,000 ML IV ONE ×2 (17:17→19:30)
[2016-05-19] MEDS ORDERED: CETI-269 PO (17:21)
[2016-05-19] MEDS ORDERED: MONT10TA25 PO (17:24)
[2016-05-19] MEDS ORDERED: INSU100I3 SQ ×3 (17:24)
--- NOTE | 2016-05-19 17:24 | ERPDOC ---
Departure Disposition Decision Date: May 19, 2016 Disposition Decision Time: 19:56 (KETAN JOSE MD) Disposition: 02 TO OBS [facility] Impression Impression (APOLINAR FISHER MD) Impression: Primary Impression: Viral gastroenteritis Additional Impression: Lactic acidosis Severity: Severe (KETAN JOSE MD) Condition: Improved Seen By: Physician only (KETAN JOSE MD) Referrals: VAN HARDEN (Family) Problems/Meds/Labs Reviewed?: Yes Medications reviewed and manag: Yes (KETAN JOSE MD) Follow up care ordered?: Yes Mental Status: Alert (KETAN JOSE MD) HPI - Abdominal Pain General Chief Complaint: Nausea,Vomiting,Diarrhea Stated Complaint: POSS FLU Time Seen by Provider: 17:08 (APOLINAR FISHER MD) Time Seen by Provider: 18:07 (KETAN JOSE MD) HPI - Abdominal Pain Initial Comments 61-year-old female presents with vomiting 1 hour. Patient states she began very violently vomiting about an hour ago, has vomited 4 times in one hour. She has significant abdominal pain with this, no diarrhea. She does not believe she has a fever. She states her heart rate does run fast, typically about 114 bpm. She is diabetic, blood sugar was 90 before lunch, so her gave her some orange juice with sugar mixed into it. She is also on prednisone for sinus infection. She's never had cramping or vomiting like this before. Denies any abdominal trauma. (APOLINAR FISHER MD) Allergies: Coded Allergies: Penicillins (Verified Allergy, Unknown, EDEMA, 05/19/16) Sulfa (Sulfonamide Antibiotics) (Verified Allergy, Unknown, 05/19/16) Uncoded Allergies: BANDAIDE (Allergy, Unknown, 05/15/14) Past History Past Medical History Metabolic: hypercholesterolemia, hypertension GI: GERD Musculoskeletal: back pain (APOLINAR FISHER MD) Surgical History General: EGD, back, colonoscopy, gallbladder, neck Reproductive/: hysterectomy, tubal ligation (APOLINAR FISHER MD) Family History Family PMH: FOUND: CAD, cancer, diabetes (APOLINAR FISHER MD) Vaccines Hx Influenza Vaccination: Yes (DEC 2013) Hx Pneumococcal Vaccination: Yes (fall) Hx Tetanus, Diptheria, Pertuss: Yes (UNKNOWN) (APOLINAR FISHER MD) Social History Smoking Status: Never smoker # of Packs/Tins per Day: 1 # of Years: 40 Substance Use Type: does not use Sexuality: other (APOLINAR FISHER MD) Record Review Pertinent history updated: Yes (APOLINAR FISHER MD) Review of Systems Cardiovascular Rhythm/Rate: see HPI (APOLINAR FISHER MD) All other Systems All Other Systems: Reviewed and Negative (APOLINAR FISHER MD) Physical Exam General General Nourishment: adult, obese, acute distress Distress Description Actively vomiting. (APOLINAR FISHER MD) Vitals and Pain First Documented Vital Signs Date Time Temp Pulse Resp B/P Pulse Ox O2 Delivery O2 Flow Rate FiO2 05/19/16 17:02 98.1 130 20 111/68 92 Room Air (KETAN JOSE MD) Vitals and Pain Weight: Kilograms: 121.600 Height (feet): 5 Height (inches): 6.00 Triage Pain Scale: (APOLINAR FISHER MD) Normal Exams: Head: Normocephalic w/o trauma Chest/Resp: Clear all irvin, with good airflow, and symmetry bilaterally CV: Regular rate and rhythm, without murmur or gallop, Pulses 2+ all extremities, capillary refill, <2 seconds all ext., no pedal edema noted Neurologic: Patient is alert, and oriented, cranial nerves, motor/sensory/ cerebellar, exams w/o gross deficits, to observation (APOLINAR FISHER MD) Abdomen (brief) Comments Hypoactive bowel sounds, obese, diffusely tender to palpation (APOLINAR FISHER MD) Differential Diagnoses Considering: Appendicitis, Cholecystitis, Dehydration, Diverticulitis, Food Poisoning, Gastroenteritis, Intussusception, Ischemic Bowel, Pancreatitis, Pyelonephritis, UTI, Vertigo (APOLINAR FISHER MD) Progress Results/Orders Orders Procedure Category Date Status Time Cbc W/Auto LAB 05/19/16 Complete Diff-Reflex Manual 17:17 Cmp - Comprehensive LAB 05/19/16 Complete Metabolic 17:17 Lipase LAB 05/19/16 Complete 17:17 C-Reactive Protein - LAB 05/19/16 Complete CRP 17:17 Tsh - Thyroid Stim LAB 05/19/16 Complete Hormone 17:17 Troponin I W LAB 05/19/16 Complete Hemolysis Index 17:17 Ua, Dip Wreflex LAB 05/19/16 Logged Microsc & Mold Filler 17:17 Iv Lock (Ed Only) EDM 05/19/16 Transmitted 17:17 Normal Saline (Normal PHA 05/19/16 Complete Saline Iv) 17:17 Ondansetron Inj PHA 05/19/16 Complete (Zofran) 17:30 Prochlorperazine PHA 05/19/16 Complete (Compazine) 17:30 EKG EKG 05/19/[address] Abd/Pelvis W/O CT 05/19/16 Taken Contrast 17:26 Prochlorperazine PHA 05/19/16 Complete (Compazine) 18:00 Lactate - Lactic Acid LAB 05/19/16 Complete Procalcitonin LAB 05/19/16 Complete 18:26 Lactate - Lactic Acid LAB 05/19/16 Logged 22:56 Normal Saline (Normal PHA 05/19/16 Complete Saline Iv) 19:30 Place In Facility: ED ADM 05/19/16 Transmitted 19:52 Measure Vital Signs [facility] 05/19/16 In Process 19:52 Notify Adm Physician YENIFER 05/19/16 In Process In Am 19:52 (KETAN JOSE MD) Lab Results Laboratory Tests Test 05/19/16 17:09 05/19/16 17:36 05/19/16 17:43 Glucometer 131mg/dL Plasma Lactate 6.0MMOL/L Procalcitonin 0.05NG/ML White Blood Count 21.3T/MM3 Red Blood Count 5.82M/MM3 Hemoglobin 17.4GM/DL Hematocrit 53.1% Mean Corpuscular Volume 91.2UM3 Mean Corpuscular Hemoglobin 29.9UUG Mean Corpuscular Hemoglobin Concent 32.8GM/DL RDW Standard Deviation 51.9FL Platelet Count 270T/MM3 Mean Platelet Volume 10.8UM3 Immature Granulocyte % (Auto) % Neutrophils (%) (Auto) % Lymphocytes (%) (Auto) % Monocytes (%) (Auto) % Eosinophils (%) (Auto) % Basophils (%) (Auto) % Absolute Immature Granulocyte (auto T/MM3 Absolute Neutrophils (auto) T/MM3 Absolute Lymphocytes (auto) T/MM3 Absolute Monocytes (auto) T/MM3 Absolute Eosinophils (auto) T/MM3 Absolute Basophils (auto) T/MM3 Neutrophils % (Manual) 69.0% Band Neutrophils % 13.0% Lymphocytes % (Manual) 8.0% Reactive Lymphocytes % 1.0% Monocytes % (Manual) 8.0% Basophils % (Manual) 1.0% Absolute Neutrophils (Manual) 14.7T/MM3 Band Neutrophils # 2.8T/MM3 Lymphocytes # (Manual) 1.7T/MM3 Reactive Lymphocytes # 0.2T/MM3 Monocytes # (Manual) 1.7T/MM3 Basophils # (Manual) 0.2T/MM3 Red Cell Morphology Comment Normal Turbidity < 20 Sodium Level 143MEQ/L Potassium Level 5.2MEQ/L Chloride Level 99MEQ/L Carbon Dioxide Level 27MEQ/L Anion Gap 17MEQ/L Blood Urea Nitrogen 23.0MG/DL Creatinine 1.0MG/DL Glomerular Filtration Rate Calc 57 BUN/Creatinine Ratio 23RATIO Glucose Level 161MG/DL Calculated Osmolality 282MOSM/KG Calcium Level 9.0MG/DL Total Bilirubin 0.90MG/DL Icterus Index < 2 Aspartate Amino Transf (AST/SGOT) 25U/L Alanine Aminotransferase (ALT/SGPT) 32U/L Alkaline Phosphatase 99U/L Troponin I < 0.012ng/ml C-Reactive Protein 20.4MG/L Total Protein 8.0G/DL Albumin 4.3G/DL Globulin 3.7G/DL Albumin/Globulin Ratio 1.2RATIO Lipase 98U/L Thyroid Stimulating Hormone (TSH) 3.60MIU/L Chemistry Specimen Hemolysis 46 (KETAN JOSE MD) Medications Current ED Medications Sodium Chloride (Normal Saline IV) 1,000 ml @ 0 mls/hr Q0M ONCE IV Last administered on 05/19/16 17:45; Start 05/19/16 at 17:17; Stop 05/19/16 at 17:20 ; Status DC Ondansetron HCl (Zofran) 4 mg O ONCE IV Last administered on 05/19/16 17:46; Start 05/19/16 at 17:30; Stop 05/19/16 at 17:31; Status DC Prochlorperazine Maleate (Compazine) 25 mg O ONCE RECTALLY ; Start 05/19/16 at 17:30; Stop 05/19/16 at 17:53; Status DC Prochlorperazine Edisylate 10 mg 10 mg O ONCE IV Last administered on 17:54; Start 05/19/16 at 18:00; Stop 3/19/17 at 18:01; Status DC Sodium Chloride (Normal Saline IV) 1,000 ml @ 0 mls/hr Q0M ONCE IV Last administered on 05/19/16t 19:36; Start 05/19/16 at 19:30; Stop 05/19/16 at 19:31 ; Status DC (KETAN JOSE MD) Progress Progress Patient continues to be tachycardic, second liter normal saline has been started Pro calcitonin is normal, plasma lactate is elevated at 6.0. At this point this appears to be severe viral gastroenteritis with persistent tachycardia and elevated lactate, a specific source of infection is identified, therefore no antibiotics are started at this time. Patient is being admitted for observation medical unit IV fluids and antiemetics to Dr. Patrick (KETAN JOSE MD) APOLINAR FISHER MD May 19, 2016 17:24 KETAN JOSE MD May 19, 2016 19:57
[2016-05-19] MEDS ORDERED: PROCHLORPERAZINE 25 MG RECTALLY ONE (17:30)
[2016-05-19] MEDS ORDERED: ONDANSETRON 4mg/2ml INJECTION IV ONE (17:30)
[2016-05-19] MEDS ORDERED: FLUT16SP EA NOSTRIL (17:30)
[2016-05-19] MEDS ORDERED: ONDA4TAB7 PO (17:35)
[2016-05-19 17:51] LABS: HCT - HEMATOCRIT 53.1 % (36-46); HGB - HEMOGLOBIN 17.4 GM/DL (12-16); MEAN CORPUSCULAR HGB 29.9 UUG (26-34); MEAN CORPUSCULAR HGB CONC(MCHC 32.8 GM/DL (31-37); MEAN CORPUSCULAR VOLUME 91.2 UM3 (80-100); MEAN PLATELET VOLUME 10.8 UM3 (9.4-12.4); RED BLOOD COUNT 5.82 M/MM3 (4.00-5.20); WBC - WHITE BLOOD COUNT 21.3 T/MM3 (4.5-11.0)
[2016-05-19] MEDS ORDERED: PROCHLORPERAZINE 10mg/2ml INJECTION IV ONE (18:00)
[2016-05-19 18:01] LABS: ALBUMIN 4.3 G/DL (3.5-5.0); ALBUMIN/GLOBULIN RATIO 1.2 RATIO (1.1-2.2); ALKALINE PHOSPHATASE 99 U/L (38-126); ALT (SGPT) 32 U/L (9-52); ANION GAP 17 MEQ/L (5-15); AST (SGOT) 25 U/L (14-36); BUN/CREATININE RATIO 23 RATIO (6-26); C-REACTIVE PROTEIN 20.4 MG/L (0-9); CHLORIDE 99 MEQ/L (98-107); CO2 - CARBON DIOXIDE 27 MEQ/L (22-30); GLOMERULAR FILTRATION RATE 57; GLUCOSE 161 MG/DL (65-110); LIPASE 98 U/L (23-300); POTASSIUM 5.2 MEQ/L (3.6-5); SODIUM 143 MEQ/L (134-144)
--- OUTSIDE RECORDS SUMMARY | 2016-05-19 18:07 | XMS REPORT | Continuity of Care Document ---
Author Author [facility] Organization [facility] Address Unknown Phone Unavailable Support Name Relationship Address Phone MAYKEL WALLER MD Caregiver [address] [place] [address] [place] [phone] VAN HARDEN Caregiver [address] [place] [address] WINSTON GUADARRAMA Next Of Kin [address] [place] [id number] Insurance Providers Payer Name Policy Number Subscriber Name Relationship [facility] [id number] Winston Guadarrama 01 Spouse Advance Directives Directive [...] F (96.8 - 99.1) Temperature (Calculated Celsius) 36.71983 degrees C (36.0 - 37.3) Pulse Rate [...] BY DR RODGERS -- CALL CRITICALS TO [phone] Basophils (%) (Auto) September 30, 2013 1:45pm 0.4 % N 0-[address] RODGERS -- CALL CRITICALS TO [phone] Blood Urea Nitrogen September 30, 2013 1:50pm 8.0 MG/DL N 7-17 ADD-ON TO TESTING FROM [facility] TODAY; WE SHOULD HAVE ASPECIMEN/SJM Calcium Level September 30, 2013 1:50pm 8.9 MG/DL N 8.4-10.2 ADD-ON TO TESTING FROM [facility] TODAY; WE SHOULD HAVE ASPECIMEN/SJM Calculated Osmolality September 30, 2013 1:50pm 273 MOSM/KG N 261-280 ADD- ON TO TESTING FROM [facility] TODAY; WE SHOULD HAVE ASPECIMEN/SJM Carbon Dioxide Level September 30, 2013 1:50pm 29 MEQ/L N 22-30 ADD-ON TO TESTING FROM [facility] TODAY; WE SHOULD HAVE ASPECIMEN/SJM Chloride Level September 30, 2013 1:50pm 100 MEQ/L N 98-107 ADD-ON TO TESTING FROM [facility] TODAY; WE SHOULD HAVE ASPECIMEN/SJM Cholesterol Level July 19, 2013 1:15am 131 MG/DL L 132-199 Cholesterol/HDL Ratio July 19, 2013 1:15am 3.7 RATIO N 0-4.0 Conjugated Bilirubin November 06, 2011 9:30pm 0.00 MG/DL N 0.00-0.30 Creatinine September 30, 2013 1:50pm 0.6 MG/DL L 0.7-1.2 ADD-ON TO TESTING FROM [facility] TODAY; WE SHOULD HAVE ASPECIMEN/SJM D-Dimer July 18, 2013 1:28pm < 150 NG/ML 0-230 <224 NG/ML=PRESUMPTIVE NEGATIVE FOR PE OR DVT>224 NG/ML=ADDITIONAL EVALUATION FOR PE OR DVT RECOMMENDED Eosinophils # (Auto) September 30, 2013 1:45pm 0.1 T/MM3 N 0-0.[address] RODGERS -- CALL CRITICALS TO [phone] Eosinophils # (Manual) December 28, 2010 9:30pm 0.3 T/MM3 N 0-0.5 Eosinophils % (Manual) December 28, 2010 9:30pm 2.0 % N 0-4 Eosinophils (%) (Auto) September 30, 2013 1:45pm 0.9 % N 0-[address] RODGERS -- CALL CRITICALS TO [phone] Globulin July 18, 2013 1:28pm 2.9 G/DL N 2.4-3.6 Glucose Level September 30, 2013 1:50pm 173 MG/DL H 65-110 ADD-ON TO TESTING FROM [facility] TODAY; WE SHOULD HAVE ASPECIMEN/SJM Hematocrit September 30, 2013 1:45pm 44.4 % N 36-[address] RODGERS -- CALL CRITICALS TO [phone] Hemoglobin September 30, 2013 1:45pm 14.7 GM/DL N 12-[address] RODGERS -- CALL CRITICALS TO [phone] LDL Cholesterol, Calculated July 19, 2013 1:15am 59.0 L 66-159 Lipase November 06, 2011 9:30pm 55 U/L N 23-300 Lymphocytes # (Auto) September 30, 2013 1:45pm 1.5 T/MM3 N 1-4.[address] RODGERS -- CALL CRITICALS TO [phone] Lymphocytes # (Manual) December 28, 2010 9:30pm 4.8 T/MM3 N 1-4.8 Lymphocytes % (Manual) December 28, 2010 9:30pm 28.0 % N 23-45 Lymphocytes (%) (Auto) September 30, 2013 1:45pm 19.8 % L 23-[address] RODGERS -- CALL CRITICALS TO [phone] Magnesium Level July 18, 2013 1:28pm 1.6 MG/DL N 1.6-2.3 COMMENT blood in lab Mean Corpuscular Hemoglobin September 30, 2013 1:45pm 29.8 UUG N 26-[address] RODGERS -- CALL CRITICALS TO [phone] Mean Corpuscular Hemoglobin Concent September 30, 2013 1:45pm 33.1 GM/DL N 31 -[address] RODGERS -- CALL CRITICALS TO [phone] Mean Corpuscular Volume September 30, 2013 1:45pm 89.9 UM3 N 80-[address] RODGERS -- CALL CRITICALS TO [phone] Mean Platelet Volume September 30, 2013 1:45pm 9.9 UM3 N 9.4-12.[address] RODGERS -- CALL CRITICALS TO [phone] Monocytes # (Auto) September 30, 2013 1:45pm 0.6 T/MM3 N 0-0.[address] RODGERS -- CALL CRITICALS TO [phone] Monocytes # (Manual) December 28, 2010 9:30pm 1.2 T/MM3 H 0-0.8 Monocytes % (Manual) December 28, 2010 9:30pm 7.0 % N 0-9.0 Monocytes (%) (Auto) September 30, 2013 1:45pm 7.5 % N 0-9.[address] RODGERS -- CALL CRITICALS TO [phone] Neutrophils # (Auto) September 30, 2013 1:45pm 5.3 T/MM3 N 1.8-7.[address] RODGERS -- CALL CRITICALS TO [phone] Neutrophils # (Manual) December 28, 2010 9:30pm 10.0 T/MM3 H 1.8-7.7 Neutrophils % (Manual) December 28, 2010 9:30pm 58.0 % N 33-66 Neutrophils (%) (Auto) September 30, 2013 1:45pm 70.6 % H 33-[address] RODGERS -- CALL CRITICALS TO [phone] Platelet Count September 30, 2013 1:45pm 211 T/MM3 N 130-[address] RODGERS -- CALL CRITICALS TO [phone] Potassium Level September 30, 2013 1:50pm 3.2 MEQ/L L 3.6-5 [facility]; WE SHOULD HAVE ASPECIMEN/SJM Prealbumin July 18, 2013 1:28pm 25.1 MG/DL N 17.6-36.0 COMMENT blood in lab Prothromb Time International Ratio July 18, 2013 1:28pm 0.91 N 0.86-1.10 THERAPUTIC RANGE=2.00-3.00 FOR ANTI-THROMBOSIS THERAPUTIC RANGE=2.50-3.50 FOR IMPLANTED VALVE RDW Standard Deviation September 30, 2013 1:45pm 46.5 FL N 36.9-50.[address] RODGERS -- CALL CRITICALS TO [phone] Red Blood Count September 30, 2013 1:45pm 4.94 M/MM3 N 4.00-5.[address] RODGERS -- CALL CRITICALS TO [phone] Sodium Level September 30, 2013 1:50pm 141 MEQ/L N 134-144 [facility]; WE SHOULD HAVE ASPECIMEN/SJM Tests Not [...] BY DR RODGERS -- CALL CRITICALS TO [phone] Urine Blood September 30, 2013 1:40pm Negative - ORDERED BY DR RODGERS -- CALL CRITICALS TO [phone] Urine Collection Type September 30, 2013 1:40pm Cleancatch-midstream - ORDERED BY DR RODGERS -- CALL CRITICALS TO [phone] Urine Color September 30, 2013 1:40pm Yellow - ORDERED BY DR RODGERS -- CALL CRITICALS TO [phone] Urine Glucose (UA) September 30, 2013 1:40pm Negative - ORDERED BY DR RODGERS -- CALL CRITICALS TO [phone] Urine Ketones September 30, 2013 1:40pm Negative - ORDERED BY DR RODGERS - - CALL CRITICALS TO [phone] Urine Leukocyte Esterase September 30, 2013 1:40pm Negative - ORDERED BY DR RODGERS -- CALL CRITICALS TO [phone] Urine Nitrite September 30, 2013 1:40pm Negative - ORDERED BY DR RODGERS - - CALL CRITICALS TO [phone] Urine Protein September 30, 2013 1:40pm Negative - ORDERED BY DR RODGERS - - CALL CRITICALS TO [phone] Urine Specific [place] September 30, 2013 1:40pm 1.015 - ORDERED BY DR RODGERS -- CALL CRITICALS TO [phone] Urine Turbidity September 30, 2013 1:40pm Clear - ORDERED BY DR RODGERS -- CALL CRITICALS TO [phone] Urine Urobilinogen September 30, 2013 1:40pm 0.2 EU/DL - ORDERED BY DR RODGERS -- CALL CRITICALS TO [phone] Urine pH September 30, 2013 1:40pm 6.5 - ORDERED BY DR RODGERS -- CALL CRITICALS TO [phone] VLDL Cholesterol July 19, 2013 1:15am 37.0 MG/DL H 0-28 Vitamin B12 Level July 18, 2013 1:28pm 372 PG/ML N [phone] COMMENT blood in lab White Blood Count September 30, 2013 1:45pm 7.5 T/MM3 N 4.5-11.[address] RODGERS -- CALL CRITICALS TO [phone] Chemistry Specimen Hemolysis September 30, 2013 1:50pm [...] BY DR RODGERS -- CALL CRITICALS TO [phone] Lab Scanned Report September 30, 2013 7:51pm LAB TEST FORM REQUEST [id number] - HDL Cholesterol Direct July 19, 2013 1:15am 35 MG/DL L 40-60 Turbidity September 30, 2013 1:50pm < 20 0-20 [facility]; WE SHOULD HAVE ASPECIMEN/SJM Reactive Lymphocytes % December 28, 2010 9:30pm 4.0 % H 0-0 Glomerular Filtration Rate Calc September 30, 2013 1:50pm 103 - ADD-[facility]; WE SHOULD HAVE ASPECIMEN/SJM Reactive Lymphocytes # December 28, 2010 9:30pm 0.7 T/MM3 H 0-0 Immature Granulocyte # (Auto) September 30, 2013 1:45pm 0.06 T/MM3 H 0.00- 0.[address] RODGERS -- CALL CRITICALS TO [phone] Immature Granulocyte % (Auto) September 30, 2013 1:45pm 0.8 % H 0.0-0.[address] RODGERS -- CALL CRITICALS TO [phone] Icterus Index September 30, 2013 1:50pm < 2 0-7 ADD-ON TO TESTING FROM [facility] TODAY; WE SHOULD HAVE ASPECIMEN/SJM ZP-Boy-Y-Type Natriuretic Peptide July 18, 2013 1:28pm 56 [...] Encounters Encounter Location Date/Time Departed Emergency Room [facility] 02/10/14 7:31pm Recent Diagnosis
--- OUTSIDE RECORDS SUMMARY | 2016-05-19 18:08 | XMS REPORT | Continuity of Care Document ---
Author Author [facility] Organization [facility] Address Unknown Phone Unavailable Support Name Relationship Address Phone JODY CAMPOS DO Caregiver [facility] [address] [place] [address] DERECKVAN NIEVES Caregiver [address] [place] [address] WINSTON GUADARRAMA Next Of Kin [address] [place] [id number] Insurance Providers Payer Name Policy Number Subscriber Name Relationship [facility] [id number] Winston Guadarrama 01 Spouse Advance Directives Directive [...] F (96.8 - 99.1) Temperature (Calculated Celsius) 35.12329 degrees C (36.0 - 37.3) Pulse Rate [...] BY DR RODGERS -- CALL CRITICALS TO [phone] Basophils (%) (Auto) September 30, 2013 1:45pm 0.4 % N 0-[address] RODGERS -- CALL CRITICALS TO [phone] Blood Urea Nitrogen April 06, 2014 2:41pm [...] BY DR RODGERS -- CALL CRITICALS TO [phone] Eosinophils # (Manual) December 28, 2010 9:30pm 0.3 T/MM3 N 0-0.5 Eosinophils % (Manual) December 28, 2010 9:30pm 2.0 % N 0-4 Eosinophils (%) (Auto) September 30, 2013 1:45pm 0.9 % N 0-[address] RODGERS -- CALL CRITICALS TO [phone] Globulin July 18, 2013 1:28pm 2.9 G/DL N 2.4-3.6 Glomerular Filtration Rate Calc April 06, 2014 2:41pm 103 - Glucose Level April 06, 2014 2:41pm 187 MG/DL H 65-110 HDL Cholesterol Direct July 19, 2013 1:15am 35 MG/DL L 40-60 Hematocrit September 30, 2013 1:45pm 44.4 % N 36-[address] RODGERS -- CALL CRITICALS TO [phone] Hemoglobin September 30, 2013 1:45pm 14.7 GM/DL N 12-[address] RODGERS -- CALL CRITICALS TO [phone] Icterus Index April 06, 2014 2:41pm < 2 0-7 Immature Granulocyte # (Auto) September 30, 2013 1:45pm 0.06 T/MM3 H 0.00- 0.[address] RODGERS -- CALL CRITICALS TO [phone] Immature Granulocyte % (Auto) September 30, 2013 1:45pm 0.8 % H 0.0-0.[address] RODGERS -- CALL CRITICALS TO [phone] LDL Cholesterol, Calculated July 19, 2013 1:15am 59.0 L 66-159 Lab Scanned Report April 06, 2014 10:06pm LAB TEST FORM REQUEST - Lipase November 06, 2011 9:30pm 55 U/L N 23-300 Lymphocytes # (Auto) September 30, 2013 1:45pm 1.5 T/MM3 N 1-4.[address] RODGERS -- CALL CRITICALS TO [phone] Lymphocytes # (Manual) December 28, 2010 9:30pm 4.8 T/MM3 N 1-4.8 Lymphocytes % (Manual) December 28, 2010 9:30pm 28.0 % N 23-45 Lymphocytes (%) (Auto) September 30, 2013 1:45pm 19.8 % L 23-[address] RODGERS -- CALL CRITICALS TO [phone] Magnesium Level July 18, 2013 1:28pm 1.6 MG/DL N 1.6-2.3 COMMENT blood in lab Mean Corpuscular Hemoglobin September 30, 2013 1:45pm 29.8 UUG N 26-[address] RODGERS -- CALL CRITICALS TO [phone] Mean Corpuscular Hemoglobin Concent September 30, 2013 1:45pm 33.1 GM/DL N 31 -[address] RODGERS -- CALL CRITICALS TO [phone] Mean Corpuscular Volume September 30, 2013 1:45pm 89.9 UM3 N 80-[address] RODGERS -- CALL CRITICALS TO [phone] Mean Platelet Volume September 30, 2013 1:45pm 9.9 UM3 N 9.4-12.[address] RODGERS -- CALL CRITICALS TO [phone] Monocytes # (Auto) September 30, 2013 1:45pm 0.6 T/MM3 N 0-0.[address] RODGERS -- CALL CRITICALS TO [phone] Monocytes # (Manual) December 28, 2010 9:30pm 1.2 T/MM3 H 0-0.8 Monocytes % (Manual) December 28, 2010 9:30pm 7.0 % N 0-9.0 Monocytes (%) (Auto) September 30, 2013 1:45pm 7.5 % N 0-9.[address] RODGERS -- CALL CRITICALS TO [phone] MB-Qoz-L-Type Natriuretic Peptide July 18, 2013 1:28pm 56 PG/ML N 0-175 Rule in cut points: <50 years old=450; 50-75 years old=900; >75 years old=1800; When utilizing ProBNP rule-in cut points, adjustment for impaired renal function is typically not required. Neutrophils # (Auto) September 30, 2013 1:45pm 5.3 T/MM3 N 1.8-7.[address] RODGERS -- CALL CRITICALS TO [phone] Neutrophils # (Manual) December 28, 2010 9:30pm 10.0 T/MM3 H 1.8-7.7 Neutrophils % (Manual) December 28, 2010 9:30pm 58.0 % N 33-66 Neutrophils (%) (Auto) September 30, 2013 1:45pm 70.6 % H 33-[address] RODGERS -- CALL CRITICALS TO [phone] Platelet Count September 30, 2013 1:45pm 211 T/MM3 N 130-[address] RODGERS -- CALL CRITICALS TO [phone] Potassium Level April 06, 2014 2:41pm 3.8 MEQ/L N 3.6-5 Prealbumin July 18, 2013 1:28pm 25.1 MG/DL N 17.6-36.0 COMMENT blood in lab Prothromb Time International Ratio July 18, 2013 1:28pm 0.91 N 0.86-1.10 THERAPUTIC RANGE=2.00-3.00 FOR ANTI-THROMBOSIS THERAPUTIC RANGE=2.50-3.50 FOR IMPLANTED VALVE RDW Standard Deviation September 30, 2013 1:45pm 46.5 FL N 36.9-50.[address] RODGERS -- CALL CRITICALS TO [phone] Reactive Lymphocytes # December 28, 2010 9:30pm 0.7 T/MM3 H 0-0 Reactive Lymphocytes % December 28, 2010 9:30pm 4.0 % H 0-0 Red Blood Count September 30, 2013 1:45pm 4.94 M/MM3 N 4.00-5.[address] RODGERS -- CALL CRITICALS TO [phone] Sodium Level April 06, 2014 2:41pm 144 [...] BY DR RODGERS -- CALL CRITICALS TO [phone] Urine Bilirubin September 30, 2013 1:40pm Negative - ORDERED BY DR RODGERS -- CALL CRITICALS TO [phone] Urine Blood September 30, 2013 1:40pm Negative - ORDERED BY DR RODGERS -- CALL CRITICALS TO [phone] Urine Collection Type September 30, 2013 1:40pm Cleancatch-midstream - ORDERED BY DR RODGERS -- CALL CRITICALS TO [phone] Urine Color September 30, 2013 1:40pm Yellow - ORDERED BY DR RODGERS -- CALL CRITICALS TO [phone] Urine Glucose (UA) September 30, 2013 1:40pm Negative - ORDERED BY DR RODGERS -- CALL CRITICALS TO [phone] Urine Ketones September 30, 2013 1:40pm Negative - ORDERED BY DR RODGERS - - CALL CRITICALS TO [phone] Urine Leukocyte Esterase September 30, 2013 1:40pm Negative - ORDERED BY DR RODGERS -- CALL CRITICALS TO [phone] Urine Microscopic Not Indicated November 06, 2011 9:37pm Not indicated - Has specimen been collected/obtained? Y Urine Nitrite September 30, 2013 1:40pm Negative - ORDERED BY DR RODGERS - - CALL CRITICALS TO [phone] Urine Protein September 30, 2013 1:40pm Negative - ORDERED BY DR RODGERS - - CALL CRITICALS TO [phone] Urine Specific [place] September 30, 2013 1:40pm 1.015 - ORDERED BY DR RODGERS -- CALL CRITICALS TO [phone] Urine Turbidity September 30, 2013 1:40pm Clear - ORDERED BY DR RODGERS -- CALL CRITICALS TO [phone] Urine Urobilinogen September 30, 2013 1:40pm 0.2 EU/DL - ORDERED BY DR RODGERS -- CALL CRITICALS TO [phone] Urine pH September 30, 2013 1:40pm 6.5 - ORDERED BY DR RODGERS -- CALL CRITICALS TO [phone] VLDL Cholesterol July 19, 2013 1:15am 37.0 MG/DL H 0-28 Vitamin B12 Level July 18, 2013 1:28pm 372 PG/ML N [phone] COMMENT blood in lab White Blood Count September 30, 2013 1:45pm 7.5 T/MM3 N 4.5-11.[address] RODGERS -- CALL CRITICALS TO [phone] Gram Stain Groin June 06, 2011 10:15pm Procedures Procedure Status Date Provider(s) ROUTINE VENIPUNCTURE completed 04/06/14 METABOLIC PANEL TOTAL CA completed 04/06/14 Encounters Encounter Location Date/Time Departed Emergency Room [facility] 05/15/14 10:09pm Registered Clinic [facility] 04/06/14 2:33pm Recent Diagnosis
[2016-05-19 18:09] LABS: BAND NEUTROPHILS # 2.8 T/MM3; BASOPHILS # (MANUAL) 0.2 T/MM3 (0-0.2); LYMPHOCYTES # (MANUAL) 1.7 T/MM3 (1-4.8); MONOCYTES # (MANUAL) 1.7 T/MM3 (0-0.8); NEUTROPHILS #(MANUAL)-ABSOLUTE 14.7 T/MM3 (1.8-7.7); REACTIVE LYMPHOCYTES # 0.2 T/MM3 (0-0); TOTAL CELLS COUNTED 100 %
--- NOTE | 2016-05-19 18:49 | NUR ---
STATUS PT RESTS WITH EYES CLOSED. RESP EVEN AND UNLABORED. DENIES NEEDS
--- NOTE | 2016-05-19 19:29 | NUR ---
PT UP TO BATHROOM WITH ASSIST OF ONE
[2016-05-19] MEDS ORDERED: ONDANSETRON 4mg/2ml INJECTION IV PRN (20:00)
[2016-05-19] MEDS ORDERED: PROMETHAZINE 25 MG INJECTION IV PRN (20:00)
[2016-05-19] MEDS ORDERED: METOCLOPRAMIDE 10mg/2ml INJECTION IV PRN (20:00)
--- OUTSIDE RECORDS SUMMARY | 2016-05-19 20:18 | XMS REPORT | Continuity of Care Document ---
Author Author [facility] Organization [facility] Address Unknown Phone Unavailable Support Name Relationship Address Phone MAYKEL WALLER MD Caregiver [address] [place] [address] [place] [id number] VAN HARDEN Caregiver [address] [place] [address] WINSTON GUADARRAMA Next Of Kin [address] [place] [id number] Insurance Providers Payer Name Policy Number Subscriber Name Relationship [facility] [id number] Winston Guadarrama 01 Spouse Advance Directives Directive [...] F (96.8 - 99.1) Temperature (Calculated Celsius) [phone] degrees C (36.0 - 37.3) Pulse Rate [...] BY DR RODGERS -- CALL CRITICALS TO [phone] Basophils (%) (Auto) September 30, 2013 1:45pm 0.4 % N 0-[address] RODGERS -- CALL CRITICALS TO [phone] Blood Urea Nitrogen September 30, 2013 1:50pm 8.0 MG/DL N 7-17 ADD-ON TO TESTING FROM [facility] [place] TODAY; WE SHOULD HAVE ASPECIMEN/SJM Calcium Level September 30, 2013 1:50pm 8.9 MG/DL N 8.4-10.2 ADD-ON TO TESTING FROM [facility] [place] TODAY; WE SHOULD HAVE ASPECIMEN/SJM Calculated Osmolality September 30, 2013 1:50pm 273 MOSM/KG N 261-280 ADD- ON TO TESTING FROM [facility] [place] TODAY; WE SHOULD HAVE ASPECIMEN/SJM Carbon Dioxide Level September 30, 2013 1:50pm 29 MEQ/L N 22-30 ADD-ON TO TESTING FROM [facility] [place] TODAY; WE SHOULD HAVE ASPECIMEN/SJM Chloride Level September 30, 2013 1:50pm 100 MEQ/L N 98-107 ADD-ON TO TESTING FROM [facility] [place] TODAY; WE SHOULD HAVE ASPECIMEN/SJM Cholesterol Level July 19, 2013 1:15am 131 MG/DL L 132-199 Cholesterol/HDL Ratio July 19, 2013 1:15am 3.7 RATIO N 0-4.0 Conjugated Bilirubin November 06, 2011 9:30pm 0.00 MG/DL N 0.00-0.30 Creatinine September 30, 2013 1:50pm 0.6 MG/DL L 0.7-1.2 ADD-ON TO TESTING FROM [facility] [place] [facility]; WE SHOULD HAVE ASPECIMEN/SJM D-Dimer July 18, 2013 1:28pm < 150 NG/ML 0-230 <224 NG/ML=PRESUMPTIVE NEGATIVE FOR PE OR DVT>224 NG/ML=ADDITIONAL EVALUATION FOR PE OR DVT RECOMMENDED Eosinophils # (Auto) September 30, 2013 1:45pm 0.1 T/MM3 N 0-0.[address] RODGERS -- CALL CRITICALS TO [phone] Eosinophils # (Manual) December 28, 2010 9:30pm 0.3 T/MM3 N 0-0.5 Eosinophils % (Manual) December 28, 2010 9:30pm 2.0 % N 0-4 Eosinophils (%) (Auto) September 30, 2013 1:45pm 0.9 % N 0-[address] RODGERS -- CALL CRITICALS TO [phone] Globulin July 18, 2013 1:28pm 2.9 G/DL N 2.4-3.6 Glucose Level September 30, 2013 1:50pm 173 MG/DL H 65-110 ADD-ON TO TESTING FROM [facility] [place] [facility]; WE SHOULD HAVE ASPECIMEN/SJM Hematocrit September 30, 2013 1:45pm 44.4 % N 36-[address] RODGERS -- CALL CRITICALS TO [phone] Hemoglobin September 30, 2013 1:45pm 14.7 GM/DL N 12-[address] RODGERS -- CALL CRITICALS TO [phone] LDL Cholesterol, Calculated July 19, 2013 1:15am 59.0 L 66-159 Lipase November 06, 2011 9:30pm 55 U/L N 23-300 Lymphocytes # (Auto) September 30, 2013 1:45pm 1.5 T/MM3 N 1-4.[address] RODGERS -- CALL CRITICALS TO [phone] Lymphocytes # (Manual) December 28, 2010 9:30pm 4.8 T/MM3 N 1-4.8 Lymphocytes % (Manual) December 28, 2010 9:30pm 28.0 % N 23-45 Lymphocytes (%) (Auto) September 30, 2013 1:45pm 19.8 % L 23-[address] RODGERS -- CALL CRITICALS TO [phone] Magnesium Level July 18, 2013 1:28pm 1.6 MG/DL N 1.6-2.3 COMMENT blood in lab Mean Corpuscular Hemoglobin September 30, 2013 1:45pm 29.8 UUG N 26-[address] RODGERS -- CALL CRITICALS TO [phone] Mean Corpuscular Hemoglobin Concent September 30, 2013 1:45pm 33.1 GM/DL N 31 -[address] RODGERS -- CALL CRITICALS TO [phone] Mean Corpuscular Volume September 30, 2013 1:45pm 89.9 UM3 N 80-[address] RODGERS -- CALL CRITICALS TO [phone] Mean Platelet Volume September 30, 2013 1:45pm 9.9 UM3 N 9.4-12.[address] RODGERS -- CALL CRITICALS TO [phone] Monocytes # (Auto) September 30, 2013 1:45pm 0.6 T/MM3 N 0-0.[address] RODGERS -- CALL CRITICALS TO [phone] Monocytes # (Manual) December 28, 2010 9:30pm 1.2 T/MM3 H 0-0.8 Monocytes % (Manual) December 28, 2010 9:30pm 7.0 % N 0-9.0 Monocytes (%) (Auto) September 30, 2013 1:45pm 7.5 % N 0-9.[address] RODGERS -- CALL CRITICALS TO [phone] Neutrophils # (Auto) September 30, 2013 1:45pm 5.3 T/MM3 N 1.8-7.[address] RODGERS -- CALL CRITICALS TO [phone] Neutrophils # (Manual) December 28, 2010 9:30pm 10.0 T/MM3 H 1.8-7.7 Neutrophils % (Manual) December 28, 2010 9:30pm 58.0 % N 33-66 Neutrophils (%) (Auto) September 30, 2013 1:45pm 70.6 % H 33-[address] RODGERS -- CALL CRITICALS TO [phone] Platelet Count September 30, 2013 1:45pm 211 T/MM3 N 130-[address] RODGERS -- CALL CRITICALS TO [phone] Potassium Level September 30, 2013 1:50pm 3.2 MEQ/L L 3.6-5 [facility]; WE SHOULD HAVE ASPECIMEN/SJM Prealbumin July 18, 2013 1:28pm 25.1 MG/DL N 17.6-36.0 COMMENT blood in lab Prothromb Time International Ratio July 18, 2013 1:28pm 0.91 N 0.86-1.10 THERAPUTIC RANGE=2.00-3.00 FOR ANTI-THROMBOSIS THERAPUTIC RANGE=2.50-3.50 FOR IMPLANTED VALVE RDW Standard Deviation September 30, 2013 1:45pm 46.5 FL N 36.9-50.[address] RODGERS -- CALL CRITICALS TO [phone] Red Blood Count September 30, 2013 1:45pm 4.94 M/MM3 N 4.00-5.[address] RODGERS -- CALL CRITICALS TO [phone] Sodium Level September 30, 2013 1:50pm 141 MEQ/L N 134-144 [facility]; WE SHOULD HAVE ASPECIMEN/SJM Tests [...] BY DR RODGERS -- CALL CRITICALS TO [phone] Urine Blood September 30, 2013 1:40pm Negative - ORDERED BY DR RODGERS -- CALL CRITICALS TO [phone] Urine Collection Type September 30, 2013 1:40pm Cleancatch-midstream - ORDERED BY DR RODGERS -- CALL CRITICALS TO [phone] Urine Color September 30, 2013 1:40pm Yellow - ORDERED BY DR RODGERS -- CALL CRITICALS TO [phone] Urine Glucose (UA) September 30, 2013 1:40pm Negative - ORDERED BY DR RODGERS -- CALL CRITICALS TO [phone] Urine Ketones September 30, 2013 1:40pm Negative - ORDERED BY DR RODGERS - - CALL CRITICALS TO [phone] Urine Leukocyte Esterase September 30, 2013 1:40pm Negative - ORDERED BY DR RODGERS -- CALL CRITICALS TO [phone] Urine Nitrite September 30, 2013 1:40pm Negative - ORDERED BY DR RODGERS - - CALL CRITICALS TO [phone] Urine Protein September 30, 2013 1:40pm Negative - ORDERED BY DR RODGERS - - CALL CRITICALS TO [phone] Urine Specific [place] September 30, 2013 1:40pm 1.015 - ORDERED BY DR RODGERS -- CALL CRITICALS TO [phone] Urine Turbidity September 30, 2013 1:40pm Clear - ORDERED BY DR RODGERS -- CALL CRITICALS TO [phone] Urine Urobilinogen September 30, 2013 1:40pm 0.2 EU/DL - ORDERED BY DR RODGERS -- CALL CRITICALS TO [phone] Urine pH September 30, 2013 1:40pm 6.5 - ORDERED BY DR RODGERS -- CALL CRITICALS TO [phone] VLDL Cholesterol July 19, 2013 1:15am 37.0 MG/DL H 0-28 Vitamin B12 Level July 18, 2013 1:28pm 372 PG/ML N [phone] COMMENT blood in lab White Blood Count September 30, 2013 1:45pm 7.5 T/MM3 N 4.5-11.[address] RODGERS -- CALL CRITICALS TO [phone] Chemistry Specimen Hemolysis September 30, 2013 1:50pm [...] BY DR RODGERS -- CALL CRITICALS TO [phone] Lab Scanned Report September 30, 2013 7:51pm LAB TEST FORM REQUEST [id number] - HDL Cholesterol Direct July 19, 2013 1:15am 35 MG/DL L 40-60 Turbidity September 30, 2013 1:50pm < 20 0-20 [facility]; WE SHOULD HAVE ASPECIMEN/SJM Reactive Lymphocytes % December 28, 2010 9:30pm 4.0 % H 0-0 Glomerular Filtration Rate Calc September 30, 2013 1:50pm 103 - [facility]; WE SHOULD HAVE ASPECIMEN/SJM Reactive Lymphocytes # December 28, 2010 9:30pm 0.7 T/MM3 H 0-0 Immature Granulocyte # (Auto) September 30, 2013 1:45pm 0.06 T/MM3 H 0.00- 0.[address] RODGERS -- CALL CRITICALS TO [phone] Immature Granulocyte % (Auto) September 30, 2013 1:45pm 0.8 % H 0.0-0.[address] RODGERS -- CALL CRITICALS TO [phone] Icterus Index September 30, 2013 1:50pm < 2 0-7 ADD-ON TO [facility]ING [facility]; WE SHOULD HAVE ASPECIMEN/SJM WC-Lax-Y-Type Natriuretic Peptide July 18, 2013 1:28pm 56 [...] Encounters Encounter Location Date/Time Departed Emergency Room [facility] 02/10/14 7:31pm Recent Diagnosis
--- OUTSIDE RECORDS SUMMARY | 2016-05-19 20:18 | XMS REPORT | Continuity of Care Document ---
Author Author [facility] Organization [facility] Address Unknown Phone Unavailable Support Name Relationship Address Phone JODY CAMPOS DO Caregiver [facility] [address] [place] [address] DERECKVAN NIEVES Caregiver [address] [place] [address] WINSTON GUADARRAMA Next Of Kin [address] [place] [id number] Insurance Providers Payer Name Policy Number Subscriber Name Relationship [facility] [id number] Winston Guadarrama 01 Spouse Advance Directives Directive [...] F (96.8 - 99.1) Temperature (Calculated Celsius) 35.12126 degrees C (36.0 - 37.3) Pulse Rate [...] BY DR RODGERS -- CALL CRITICALS TO [phone] Basophils (%) (Auto) September 30, 2013 1:45pm 0.4 % N 0-[address] RODGERS -- CALL CRITICALS TO [phone] Blood Urea Nitrogen April 06, 2014 2:41pm [...] BY DR RODGERS -- CALL CRITICALS TO [phone] Eosinophils # (Manual) December 28, 2010 9:30pm 0.3 T/MM3 N 0-0.5 Eosinophils % (Manual) December 28, 2010 9:30pm 2.0 % N 0-4 Eosinophils (%) (Auto) September 30, 2013 1:45pm 0.9 % N 0-[address] RODGERS -- CALL CRITICALS TO [phone] Globulin July 18, 2013 1:28pm 2.9 G/DL N 2.4-3.6 Glomerular Filtration Rate Calc April 06, 2014 2:41pm 103 - Glucose Level April 06, 2014 2:41pm 187 MG/DL H 65-110 HDL Cholesterol Direct July 19, 2013 1:15am 35 MG/DL L 40-60 Hematocrit September 30, 2013 1:45pm 44.4 % N 36-[address] RODGERS -- CALL CRITICALS TO [phone] Hemoglobin September 30, 2013 1:45pm 14.7 GM/DL N 12-[address] RODGERS -- CALL CRITICALS TO [phone] Icterus Index April 06, 2014 2:41pm < 2 0-7 Immature Granulocyte # (Auto) September 30, 2013 1:45pm 0.06 T/MM3 H 0.00- 0.[address] RODGERS -- CALL CRITICALS TO [phone] Immature Granulocyte % (Auto) September 30, 2013 1:45pm 0.8 % H 0.0-0.[address] RODGERS -- CALL CRITICALS TO [phone] LDL Cholesterol, Calculated July 19, 2013 1:15am 59.0 L 66-159 Lab Scanned Report April 06, 2014 10:06pm LAB TEST FORM REQUEST - Lipase November 06, 2011 9:30pm 55 U/L N 23-300 Lymphocytes # (Auto) September 30, 2013 1:45pm 1.5 T/MM3 N 1-4.[address] RODGERS -- CALL CRITICALS TO [phone] Lymphocytes # (Manual) December 28, 2010 9:30pm 4.8 T/MM3 N 1-4.8 Lymphocytes % (Manual) December 28, 2010 9:30pm 28.0 % N 23-45 Lymphocytes (%) (Auto) September 30, 2013 1:45pm 19.8 % L 23-[address] RODGERS -- CALL CRITICALS TO [phone] Magnesium Level July 18, 2013 1:28pm 1.6 MG/DL N 1.6-2.3 COMMENT blood in lab Mean Corpuscular Hemoglobin September 30, 2013 1:45pm 29.8 UUG N 26-[address] RODGERS -- CALL CRITICALS TO [phone] Mean Corpuscular Hemoglobin Concent September 30, 2013 1:45pm 33.1 GM/DL N 31 -[address] RODGERS -- CALL CRITICALS TO [phone] Mean Corpuscular Volume September 30, 2013 1:45pm 89.9 UM3 N 80-[address] RODGERS -- CALL CRITICALS TO [phone] Mean Platelet Volume September 30, 2013 1:45pm 9.9 UM3 N 9.4-12.[address] RODGERS -- CALL CRITICALS TO [phone] Monocytes # (Auto) September 30, 2013 1:45pm 0.6 T/MM3 N 0-0.[address] RODGERS -- CALL CRITICALS TO [phone] Monocytes # (Manual) December 28, 2010 9:30pm 1.2 T/MM3 H 0-0.8 Monocytes % (Manual) December 28, 2010 9:30pm 7.0 % N 0-9.0 Monocytes (%) (Auto) September 30, 2013 1:45pm 7.5 % N 0-9.[address] RODGERS -- CALL CRITICALS TO [phone] XR-Grw-Z-Type Natriuretic Peptide July 18, 2013 1:28pm 56 PG/ML N 0-175 Rule in cut points: <50 years old=450; 50-75 years old=900; >75 years old=1800; When utilizing ProBNP rule-in cut points, adjustment for impaired renal function is typically not required. Neutrophils # (Auto) September 30, 2013 1:45pm 5.3 T/MM3 N 1.8-7.[address] RODGERS -- CALL CRITICALS TO [phone] Neutrophils # (Manual) December 28, 2010 9:30pm 10.0 T/MM3 H 1.8-7.7 Neutrophils % (Manual) December 28, 2010 9:30pm 58.0 % N 33-66 Neutrophils (%) (Auto) September 30, 2013 1:45pm 70.6 % H 33-[address] RODGERS -- CALL CRITICALS TO [phone] Platelet Count September 30, 2013 1:45pm 211 T/MM3 N 130-[address] RODGERS -- CALL CRITICALS TO [phone] Potassium Level April 06, 2014 2:41pm 3.8 MEQ/L N 3.6-5 Prealbumin July 18, 2013 1:28pm 25.1 MG/DL N 17.6-36.0 COMMENT blood in lab Prothromb Time International Ratio July 18, 2013 1:28pm 0.91 N 0.86-1.10 THERAPUTIC RANGE=2.00-3.00 FOR ANTI-THROMBOSIS THERAPUTIC RANGE=2.50-3.50 FOR IMPLANTED VALVE RDW Standard Deviation September 30, 2013 1:45pm 46.5 FL N 36.9-50.[address] RODGERS -- CALL CRITICALS TO [phone] Reactive Lymphocytes # December 28, 2010 9:30pm 0.7 T/MM3 H 0-0 Reactive Lymphocytes % December 28, 2010 9:30pm 4.0 % H 0-0 Red Blood Count September 30, 2013 1:45pm 4.94 M/MM3 N 4.00-5.[address] RODGERS -- CALL CRITICALS TO [phone] Sodium Level April 06, 2014 2:41pm 144 [...] BY DR RODGERS -- CALL CRITICALS TO [phone] Urine Bilirubin September 30, 2013 1:40pm Negative - ORDERED BY DR RODGERS -- CALL CRITICALS TO [phone] Urine Blood September 30, 2013 1:40pm Negative - ORDERED BY DR RODGERS -- CALL CRITICALS TO [phone] Urine Collection Type September 30, 2013 1:40pm Cleancatch-midstream - ORDERED BY DR RODGERS -- CALL CRITICALS TO [phone] Urine Color September 30, 2013 1:40pm Yellow - ORDERED BY DR RODGERS -- CALL CRITICALS TO [phone] Urine Glucose (UA) September 30, 2013 1:40pm Negative - ORDERED BY DR RODGERS -- CALL CRITICALS TO [phone] Urine Ketones September 30, 2013 1:40pm Negative - ORDERED BY DR RODGERS - - CALL CRITICALS TO [phone] Urine Leukocyte Esterase September 30, 2013 1:40pm Negative - ORDERED BY DR RODGERS -- CALL CRITICALS TO [phone] Urine Microscopic Not Indicated November 06, 2011 9:37pm Not indicated - Has specimen been collected/obtained? Y Urine Nitrite September 30, 2013 1:40pm Negative - ORDERED BY DR RODGERS - - CALL CRITICALS TO [phone] Urine Protein September 30, 2013 1:40pm Negative - ORDERED BY DR RODGERS - - CALL CRITICALS TO [phone] Urine Specific [place] September 30, 2013 1:40pm 1.015 - ORDERED BY DR RODGERS -- CALL CRITICALS TO [phone] Urine Turbidity September 30, 2013 1:40pm Clear - ORDERED BY DR RODGERS -- CALL CRITICALS TO [phone] Urine Urobilinogen September 30, 2013 1:40pm 0.2 EU/DL - ORDERED BY DR RODGERS -- CALL CRITICALS TO [phone] Urine pH September 30, 2013 1:40pm 6.5 - ORDERED BY DR RODGERS -- CALL CRITICALS TO [phone] VLDL Cholesterol July 19, 2013 1:15am 37.0 MG/DL H 0-28 Vitamin B12 Level July 18, 2013 1:28pm 372 PG/ML N [phone] COMMENT blood in lab White Blood Count September 30, 2013 1:45pm 7.5 T/MM3 N 4.5-11.[address] RODGERS -- CALL CRITICALS TO [phone] Gram Stain Groin June 06, 2011 10:15pm Procedures Procedure Status Date Provider(s) ROUTINE VENIPUNCTURE completed 04/06/14 METABOLIC PANEL TOTAL CA completed 04/06/14 Encounters Encounter Location Date/Time Departed Emergency Room [facility] 05/15/14 10:09pm Registered Clinic [facility] 04/06/14 2:33pm Recent Diagnosis
--- NOTE | 2016-05-19 20:34 | NUR ---
REPORT FALGUNI MILES STATES SHE IS IN A PTS ROOM AND WILL CALL BACK IN 5 TO 10 MINUTES
--- NOTE | 2016-05-19 20:57 | NUR ---
REPORT GIVEN TO FALGUNI MILES ON MEDICAL
[2016-05-19 21:00] VITALS: BP 134/72; PULSE 134; RESP 18; TEMP 95.5; O2SAT 92
--- NOTE | 2016-05-19 21:02 | NUR ---
Pt arrived on the unit at this time. Pt is alert and oriented x3, c/o pain in the back. Pt came from ED with N/V, under observation for gastroenteritis. Pt is a high fall risk and bed alarm is on. BG is 167. New orders received and verified. Vitals are as follows: 134/72, HR 134, RR 18, O2 92% on RA, temp 95.5. Pt oriented to room and call light. Pt agrees to call before getting out of bed. Continuing to monitor.
[2016-05-19 21:09] VITALS: Ht 167.6 cm; Wt 128.1 kg
--- NOTE | 2016-05-19 21:19 | HPPDOC ---
ABDULAZIZ STRONG MD 05/19/165: HPI - Adult Date DATE: 05/19/16 TIME: 21:08 General Chief Complaint: acute vomiting History of Present Illness 61 yo F with PMH of DM 1, HTN and GERD presented to the ED with vomiting 1 hour. Patient states she began very violently vomiting about an hour ago, has vomited 4 times in one hour. She has significant abdominal pain with this, no diarrhea. She does not believe she has a fever. She states her heart rate does run fast, typically about 114 bpm. She is diabetic, blood sugar was 90 before lunch, so her gave her some orange juice with sugar mixed into it. She is also on prednisone for sinus infection, she finished a course of ABX about 1 week ago, but she doesn't know what it was. She's never had cramping or vomiting like this before, she also reports all over body aches and chills. Denies any abdominal trauma. CT abd pelvis in ED was negative for acute findings. She was found to have lactic acidosis and elevated WBC's in the ED she was admitted for further evaluation and treatment. Past Medical History Past Medical History DM 1 HTN GERD Current Medications Home Meds Reported Medications Ondansetron (Zofran Odt) 4 Mg Tab.rapdis, 4 MG PO Q8H Y for NAUSEA 05/19/16 Fluticasone Propionate (Fluticasone Prop 50 mcg/actuation Nasal [place]) 120 [place] /16 G [place], 2 SPRAY EA NOSTRIL DAILY 05/19/16 Insulin Aspart (Novolog Flexpen) 1 Unit Pen, 11 UNIT SQ HS 05/19/16 Insulin Aspart (Novolog Flexpen) 1 Unit Pen, 13 UNIT SQ WS 05/19/16 Insulin Aspart (Novolog Flexpen) 1 Unit Pen, 11 UNIT SQ WL 05/19/16 Montelukast Sodium (Montelukast Sodium) 10 Mg Tablet, 10 MG PO HS 05/19/16 Cetirizine HCl (Cetirizine HCl) 10 Mg Tablet, 10 MG PO DAILY 05/19/16 Nitroglycerin (Nitroglycerin) 0.4 Mg Tab.subl, 0.4 MG PO Q5MIN Y for CHEST TIGHTNESS 03/09/16 Albuterol Sulfate (Albuterol Sulfate) 2.5 Mg/3 Ml Vial.neb, 2.5 MG PO Q6H Y for PRN ORDERS 03/09/16 Mometasone Furoate (Asmanex Hfa) 13 Gm Hfa.aer.ad, 2 PUFF INH BID Y for PRN ORDERS 03/09/16 Insulin Glargine,Hum.rec.anlog (Toujeo Solostar) 300 Unit/1 Ml Insuln.pen, 20 UNIT SQ HS 03/09/16 Insulin Aspart (Novolog Flexpen) 1 Unit Pen, 11 UNIT SQ WB 03/09/16 Sertraline (Sertraline) 100 Mg Tablet, 100 MG PO HS 08/08/15 Tapentadol HCl (Nucynta ER) 200 Mg Tab.er.12h, 200 MG PO Q12HR 08/08/15 Aspirin (Aspirin) 81 Mg Tab.chew, 81 MG PO DAILY 01/04/15 Gabapentin (Gabapentin) 800 Mg Tablet, 800 MG PO TID 01/04/15 Spironolactone (Spironolactone) 25 Mg Tablet, 25 MG PO DAILY 01/04/15 Furosemide (Furosemide) 40 Mg Tablet, 40 MG PO BID 01/04/15 Potassium Chloride (Potassium Chloride) 20 Meq Tablet.er, 20 MEQ PO BIDWM 05/16/14 Oxycodone Hcl (Oxycodone Hcl) 15 Mg Tablet, 15-30 MG PO Q3-4H 07/18/13 Atorvastatin Calcium (Lipitor) 10 Mg Tablet, 10 MG PO DAILY 07/18/13 Metoclopramide Hcl (Metoclopramide Hcl) 10 Mg Tablet, 10 MG PO QID 11/06/11 Baclofen (Baclofen) 10 Mg Tablet, 10 MG PO QID 06/06/11 Lansoprazole (Prevacid) 30 Mg Capsule.dr, 30 MG PO BID 09/02/09 Lisinopril (Lisinopril) 10 Mg Tablet, 10 MG PO DAILY 09/02/09 Discontinued Reported Medications Metformin HCl (Metformin HCl ER) 500 Mg Tab.er.24h, 500 MG PO BID 01/04/15 Allergies: Coded Allergies: Penicillins (Verified Allergy, Unknown, EDEMA, 05/19/16) Sulfa (Sulfonamide Antibiotics) (Verified Allergy, Unknown, 05/19/16) Uncoded Allergies: BANDAIDE (Allergy, Unknown, 05/15/14) Family History Family History: non-contributory Social History Smoking Status: Never smoker # of Packs/Tins per Day: 1 # of Years: 40 Substance Use Type: does not use Sexuality: other Review of Systems Constitutional: REPORTS: see HPI Eyes General: DENIES: burning, dryness, erythema, exudate, foreign body sensation, itching, other, pain, photophobia, see HPI, subconjunctival bleed, watering ENMT Ears: DENIES: drainage, erythema, foreign body, other, pain, see HPI Sinuses: FOUND: see HPI Nose: NOT FOUND: allergies, change in smell, foreign body, nosebleeds, obstruction, other, pain, see HPI Mouth/Throat: DENIES: bleeding gums, blisters, caries, change in swallowing, change in taste, change in voice, drooling, dry mouth, growths, hoarsness, loose teeth, masses, other, pain, painful swallowing, scratchy throat, see HPI, sore throat, sores, ulcers Cardiovascular DENIES: chest pain, dyspnea on exertion, hx of rheumatic fever, murmur, orthopnea, other, paroxysmal nocturnal dysp, see HPI Pulmonary Respiratory: DENIES: cough, dyspnea, exposure to TB, hyperventilation, other, pleuritic chest pain, pneumonia hx, see HPI, sputum, tachypnea GI Upper Abdomen: see HPI Lower Abdomen: see HPI Musculoskeletal General: DENIES: atrophy of muscles, cramps, edema, joint pain, joint swelling , other, pain, see HPI, spasm, tenderness, weakness Integumentary Skin: DENIES: color change, infections, itching, lesion, mole, other, rash, see HPI, sores, tumor, ulcers Neurological General: DENIES: aphasia, ataxia, blackouts, blindness, change in strength, dysarthria, dysesthesia, fainting, headache, memory disturbances, numbness, other, paralysis/paresis, poor coordination, see HPI, seizures, syncope, tics, tingling, tremor, vertigo, weakness Psychiatric Psychiatric: DENIES: anxiety, depression, emotional instability, hallucinations , irritability, memory impairment, nervousness, other, see HPI, suicidal ideation/attempt Physical Exam General General Nourishment: well nourished, well developed, adult Vital Signs Vital Signs Date Time Temp Pulse Resp B/P Pulse Ox O2 Delivery O2 Flow Rate FiO2 3/19/17 18:14 98.3 126 18 114/59 94 Room Air Height (Feet): 5 Height (Inches): 6.00 Respiratory Brief: FOUND: clear all irvin, equal bilaterally, NOT FOUND: other , rales, spasm, symmetrical, tenderness, wheezes Cardiovascular (brief) Cardiac Brief: FOUND: regular rate, regular rhythm Abdomen (brief) Abdominal Brief: FOUND: BS normo active x4, soft, tender (TTP LUQ) Lymphatic (brief) Lymphatic Brief: NOT FOUND: adenopathy, lymphedema, other Musculoskeletal (brief) Musculoskeletal Brief: NOT FOUND: deformity, extremities move equally, loss of motion, other, spasm, tenderness Integumentary (brief) Integumentary Brief: NOT FOUND: dry, lesions, other, pink, rash, warm Neurologic (brief) Neurological Brief: FOUND: cranial 2-12 intact, NOT FOUND: Babinski, DTR 2/4 all extremities, cerebellar, facial droop, motor, other, ptosis, sensory Neurologic RN Documented GCS Eye Opening: Verbal: Motor: Total: Psychiatric (brief) FOUND: alert, normal affect, oriented, NOT FOUND: attentive, other Laboratory Laboratory Tests Test 05/19/16 17:09 05/19/16 17:36 05/19/16 17:43 Glucometer 131mg/dL Plasma Lactate 6.0MMOL/L Procalcitonin 0.05NG/ML White Blood Count 21.3T/MM3 Red Blood Count 5.82M/MM3 Hemoglobin 17.4GM/DL Hematocrit 53.1% Mean Corpuscular Volume 91.2UM3 Mean Corpuscular Hemoglobin 29.9UUG Mean Corpuscular Hemoglobin Concent 32.8GM/DL RDW Standard Deviation 51.9FL Platelet Count 270T/MM3 Mean Platelet Volume 10.8UM3 Immature Granulocyte % (Auto) % Neutrophils (%) (Auto) % Lymphocytes (%) (Auto) % Monocytes (%) (Auto) % Eosinophils (%) (Auto) % Basophils (%) (Auto) % Absolute Immature Granulocyte (auto T/MM3 Absolute Neutrophils (auto) T/MM3 Absolute Lymphocytes (auto) T/MM3 Absolute Monocytes (auto) T/MM3 Absolute Eosinophils (auto) T/MM3 Absolute Basophils (auto) T/MM3 Neutrophils % (Manual) 69.0% Band Neutrophils % 13.0% Lymphocytes % (Manual) 8.0% Reactive Lymphocytes % 1.0% Monocytes % (Manual) 8.0% Basophils % (Manual) 1.0% Absolute Neutrophils (Manual) 14.7T/MM3 Band Neutrophils # 2.8T/MM3 Lymphocytes # (Manual) 1.7T/MM3 Reactive Lymphocytes # 0.2T/MM3 Monocytes # (Manual) 1.7T/MM3 Basophils # (Manual) 0.2T/MM3 Red Cell Morphology Comment Normal Turbidity < 20 Sodium Level 143MEQ/L Potassium Level 5.2MEQ/L Chloride Level 99MEQ/L Carbon Dioxide Level 27MEQ/L Anion Gap 17MEQ/L Blood Urea Nitrogen 23.0MG/DL Creatinine 1.0MG/DL Glomerular Filtration Rate Calc 57 BUN/Creatinine Ratio 23RATIO Glucose Level 161MG/DL Calculated Osmolality 282MOSM/KG Calcium Level 9.0MG/DL Total Bilirubin 0.90MG/DL Icterus Index < 2 Aspartate Amino Transf (AST/SGOT) 25U/L Alanine Aminotransferase (ALT/SGPT) 32U/L Alkaline Phosphatase 99U/L Troponin I < 0.012ng/ml C-Reactive Protein 20.4MG/L Total Protein 8.0G/DL Albumin 4.3G/DL Globulin 3.7G/DL Albumin/Globulin Ratio 1.2RATIO Lipase 98U/L Thyroid Stimulating Hormone (TSH) 3.60MIU/L Chemistry Specimen Hemolysis 46 Sepsis Diagnostic Criteria Sepsis Confirmed/Suspected Infection: Yes Severe Sepsis Lactate >=2.0 mg/dL Septic Shock Septic Shock Criteria: Lactate >4 Assessment & Plan Problems: (1) Viral gastroenteritis Status: Acute Assessment & Plan: WBC's could be reactive, CT scan of abdomen negative for acute findings. Supportive care with IVF and antiemetics at this time. CLD if tolerated. Awaiting UA. Check blood CX. (2) Lactic acidosis Status: Acute Assessment & Plan: Give aggressive IVF. and repeat in AM (3) HTN (hypertension) Status: Chronic (4) GERD (gastroesophageal reflux disease) Status: Chronic Assessment & Plan: continue home medications (5) Tobacco dependence Status: Acute (6) Morbid obesity with BMI of 40.0-44.9, adult Status: Chronic DVT Prophylaxis: SCD'S Code Status Full Code Hospital Course Summary Disclaimer The hospital course summary below is not to be considered part of the above Progress Note. TREY FRANCE MD 05/20/16 1613: Past Medical History Current Medications Home Meds Reported Medications Ondansetron (Zofran Odt) 4 Mg Tab.rapdis, 4 MG PO Q8H Y for NAUSEA 05/19/16 Fluticasone Propionate (Fluticasone Prop 50 mcg/actuation Nasal [place]) 120 [place] /16 G [place], 2 SPRAY EA NOSTRIL DAILY 05/19/16 Insulin Aspart (Novolog Flexpen) 1 Unit Pen, 11 UNIT SQ HS 05/19/16 Insulin Aspart (Novolog Flexpen) 1 Unit Pen, 13 UNIT SQ WS 05/19/16 Insulin Aspart (Novolog Flexpen) 1 Unit Pen, 11 UNIT SQ WL 05/19/16 Montelukast Sodium (Montelukast Sodium) 10 Mg Tablet, 10 MG PO HS 05/19/16 Cetirizine HCl (Cetirizine HCl) 10 Mg Tablet, 10 MG PO DAILY 05/19/16 Nitroglycerin (Nitroglycerin) 0.4 Mg Tab.subl, 0.4 MG PO Q5MIN Y for CHEST TIGHTNESS 03/09/16 Albuterol Sulfate (Albuterol Sulfate) 2.5 Mg/3 Ml Vial.neb, 2.5 MG PO Q6H Y for PRN ORDERS 03/09/16 Mometasone Furoate (Asmanex Hfa) 13 Gm Hfa.aer.ad, 2 PUFF INH BID Y for PRN ORDERS 03/09/16 Insulin Glargine,Hum.rec.anlog (Марина Hicks) 300 Unit/1 Ml Insuln.pen, 20 UNIT SQ HS 03/09/16 Insulin Aspart (Novolog Flexpen) 1 Unit Pen, 11 UNIT SQ WB 03/09/16 Sertraline (Sertraline) 100 Mg Tablet, 100 MG PO HS 08/08/15 Tapentadol HCl (Nucynta ER) 200 Mg Tab.er.12h, 200 MG PO Q12HR 08/08/15 Aspirin (Aspirin) 81 Mg Tab.chew, 81 MG PO DAILY 01/04/15 Gabapentin (Gabapentin) 800 Mg Tablet, 800 MG PO TID 01/04/15 Spironolactone (Spironolactone) 25 Mg Tablet, 25 MG PO DAILY 01/04/15 Furosemide (Furosemide) 40 Mg Tablet, 40 MG PO BID 01/04/15 Potassium Chloride (Potassium Chloride) 20 Meq Tablet.er, 20 MEQ PO BIDWM 05/16/14 Oxycodone Hcl (Oxycodone Hcl) 15 Mg Tablet, 15-30 MG PO Q3-4H 07/18/13 Atorvastatin Calcium (Lipitor) 10 Mg Tablet, 10 MG PO DAILY 07/18/13 Metoclopramide Hcl (Metoclopramide Hcl) 10 Mg Tablet, 10 MG PO QID 11/06/11 Baclofen (Baclofen) 10 Mg Tablet, 10 MG PO QID 06/06/11 Lansoprazole (Prevacid) 30 Mg Capsule.dr, 30 MG PO BID 09/02/09 Lisinopril (Lisinopril) 10 Mg Tablet, 10 MG PO DAILY 09/02/09 Discontinued Reported Medications Metformin HCl (Metformin HCl ER) 500 Mg Tab.er.24h, 500 MG PO BID 01/04/15 Allergies: Coded Allergies: Penicillins (Verified Allergy, Unknown, EDEMA, 05/19/16) Sulfa (Sulfonamide Antibiotics) (Verified Allergy, Unknown, 05/19/16) Uncoded Allergies: BANDAIDE (Allergy, Unknown, 05/15/14) Assessment & Plan Assessment 05/20/2016-Dr. France I reviewed the chart above by Dr. Strong. I have reviewed the medical history. The patient has type 2 diabetes, not type 1 diabetes. She also has hypertension, GERD, chronic back pain, history of back surgery, morbid obesity, COPD and hyperlipidemia. On social history, the patient is a smoker and is . Family history is significant for multiple family members with vomiting and diarrheal illness recently. Comprehensive review of systems is negative other than below. The patient states that she was feeling well until approximately 2 hours prior to admission when she started having sudden uncontrolled vomiting. She felt achy all over and was shaky. Blood sugar was in the 90s which is low for her. She had not had any diarrhea. She been eating and drinking well prior. She had been taking care of her [id number] grandson who had diarrhea for 3 days. She denied any shortness of breath. She denied any chest pain. The patient presented to the emergency room and had signs and symptoms of septic shock. She had white count of 21,000, lactate 6.0, tachycardia with heart rate up to 142. Blood cultures were obtained and are negative so far. IV fluids were initiated. Repeat lactates did normalize. The patient started feeling better fairly quickly. Heart rate normalized. IV fluids were discontinued in the morning and she was able to drink fluids very well. She was able to eat a light lunch without any nausea or vomiting. She did have some soft stools today which were sent for GI panel and was positive for Norovirus. This afternoon, she looks remarkably well. She is eating and drinking without difficulty although appetite is not back to normal. She is remaining hydrated off of IV fluids. Heart rate has normalized. She is breathing well on room air. She denies chest pain or lightheadedness. She denies any shortness of breath. White count normalized this morning. She had signs of dehydration with elevated hemoglobin and hematocrit which have improved. She had mild elevation of BUN at 23 and not has normalized. Creatinine has improved from 1.0 down to 0.8. The patient has chronic low back pain and states her pain control is adequate on her usual home medications. The patient is quite adamant that she is going home today. Fortunately, she looks well today and appears stable for dismissal to home with close follow-up with her primary care doctor. Her will be helping her at home. On exam she is alert and oriented and in no acute distress. HEENT reveals sclerae to be anicteric and oropharynx is moist. Neck is supple. Chest is clear to auscultation. Cardiovascular reveals a regular rate and rhythm. Abdomen is soft and nontender. Extremities are free of edema. We'll dismiss to home in stable condition Advance to 1800-calorie ADA diet as tolerated. Encourage fluid intake. The patient is not to restart her metformin until Friday, and then only if she is feeling better. She is to decrease her insulin with meals. I.e. if she eats half of her normal amount of lunch she should take half the normal amount of insulin with lunch. Back to her usual appetite, she should resume her usual insulin dosage. She can restart her furosemide and potassium tomorrow if she is drinking well and feeling dehydrated. I discussed with her and the patient signs and symptoms that would require either a call to her doctor or return to the emergency room. We'll dismiss to home today with her . Greater than 1 hour of time was spent seeing and evaluating the patient today, reviewing records, reviewing lab, and arranging discharge. ABDULAZIZ STRONG MD May 19, 2016 21:15 TREY FRANCE MD May 20, 2016 16:13
[2016-05-19] MEDS: NORMAL SALINE 1,000 ML IV SCH (21:51)
[2016-05-19] MEDS ORDERED: SERTRALINE 100 MG TABLET PO SCH (22:00)
[2016-05-19] MEDS ORDERED: OXYCODONE I.R. 15 MG TABLET PO SCH (22:00)
[2016-05-19] MEDS ORDERED: MONTELUKAST 10 MG TABLET PO SCH (22:00)
[2016-05-19] MEDS ORDERED: INSULIN LISPRO 100 UNIT/ML SQ SCH (22:00)
[2016-05-19] MEDS ORDERED: INSULIN LISPRO 100 UNIT/ML SQ PRN (22:00)
[2016-05-19] MEDS ORDERED: GLUCOSE ORAL GEL 40% 37.5 G TUBE PO PRN (22:00)
[2016-05-19] MEDS ORDERED: DEXTROSE 50% SYRINGE 50ml (Eq. 1 AMP) IV PRN (22:00)
--- NOTE | 2016-05-20 02:27 | NUR ---
Pt is resting with eyes closed, chest rise is visualized, is at bedside. Fluids are infusing through a L PIV. Fall precautions are in place. Continuing to monitor.
[2016-05-20 05:56] LABS: BASOPHILS % (AUTO) 0.1 % (0-2); HCT - HEMATOCRIT 45.4 % (36-46); HGB - HEMOGLOBIN 14.8 GM/DL (12-16); IMMATURE GRANULOCYTE # (AUTO) 0.14 T/MM3 (0.00-0.03); IMMATURE GRANULOCYTE % (AUTO) 1.4 % (0.0-0.5); MEAN CORPUSCULAR HGB 29.6 UUG (26-34); MEAN CORPUSCULAR HGB CONC(MCHC 32.6 GM/DL (31-37); MEAN CORPUSCULAR VOLUME 90.8 UM3 (80-100); MEAN PLATELET VOLUME 10.7 UM3 (9.4-12.4); MONOCYTES # (AUTO) 0.6 T/MM3 (0-0.8); MONOCYTES % (AUTO) 5.8 % (0-9.0); NEUTROPHILS #(AUTO)-ABSOLUTE 8.1 T/MM3 (1.8-7.7); NEUTROPHILS % (AUTO) 82.7 % (33-66); WBC - WHITE BLOOD COUNT 9.8 T/MM3 (4.5-11.0)
[2016-05-20 06:04] LABS: LACTATE - LACTIC ACID 1.5 MMOL/L (0.6-2.2)
[2016-05-20 06:05] LABS: ANION GAP 9 MEQ/L (5-15); BUN/CREATININE RATIO 30 RATIO (6-26); CALCIUM 7.7 MG/DL (8.4-10.2); CHLORIDE 105 MEQ/L (98-107); CO2 - CARBON DIOXIDE 25 MEQ/L (22-30); CREATININE 0.6 MG/DL (0.7-1.2); GLOMERULAR FILTRATION RATE 102; GLUCOSE 162 MG/DL (65-110); LIPASE 53 U/L (23-300); SODIUM 139 MEQ/L (134-144)
[2016-05-20 06:26] VITALS: PULSE 134
[2016-05-20] MEDS ORDERED: PANTOPRAZOLE 40 MG TABLET PO SCH (06:42)
--- NOTE | 2016-05-20 07:13 | NUR ---
Report given to oncoming RN, Care surrendered.
[2016-05-20 07:29] VITALS: BP 135/75; PULSE 106; RESP 20; TEMP 98.5; O2SAT 93
[2016-05-20 07:33] VITALS: PULSE 106; RESP 20
[2016-05-20 08:03] LABS: BLOOD, URINE NEGATIVE (NEGATIVE); COLOR,URINE YELLOW (YELLOW); LEUKOCYTE ESTERASE ,URINE NEGATIVE (NEGATIVE); NITRITE,URINE NEGATIVE (NEGATIVE); UROBILINOGEN,URINE 0.2 EU/DL (NORMAL)
--- NOTE | 2016-05-20 08:22 | DI ---
Indication: ITS.REASON: vomiting, abdominal pain PROCEDURE: CT ABD/PELVIS W/O CONTRAST: Encounter: Initial Comparison: None Technique: Axial CT images were performed through the abdomen and pelvis without intravenous contrast. Coronal and sagittal two-dimensional reformats. Automated Exposure Control and Iterative Reconstruction dose reducing techniques were utilized. Findings: The lung bases are clear. The liver is decreased in attenuation suggesting fatty infiltration. No gross bile duct dilatation. The gallbladder is surgically absent. The spleen, pancreas, adrenal glands and right kidney are within normal limits. Tiny low-attenuation left renal lesion is too small to characterize. No abdominal or pelvic lymphadenopathy. The bladder is unremarkable. No free fluid. No bowel obstruction. Bone windows are positive for degenerative and postoperative changes in the spine. Uterus is surgically absent. Appendix is reportedly surgically absent. Impression: No acute disease process seen. There is a preliminary report by [employer]. .
[2016-05-20] MEDS: GABAPENTIN 800 MG TABLET PO SCH ×2 (08:33→15:19)
[2016-05-20] MEDS: BACLOFEN 10 MG TABLET PO SCH ×2 (08:33→13:18)
[2016-05-20] MEDS: NORMAL SALINE 1,000 ML IV SCH (08:37)
[2016-05-20] MEDS ORDERED: TAPENTADOL 200 MG PO SCH (09:00)
[2016-05-20] MEDS ORDERED: CETIRIZINE 10 MG TABLET PO SCH (09:00)
[2016-05-20] MEDS ORDERED: LISINOPRIL 10 MG TABLET PO SCH (09:00)
[2016-05-20] MEDS ORDERED: FLUTICASONE NASAL SPRAY 50 MCG EA NOSTRIL SCH (09:00)
[2016-05-20] MEDS ORDERED: ASPIRIN 81 MG CHEWABLE TABLET PO SCH (09:00)
[2016-05-20] MEDS ORDERED: CALCIUM 500 MG TABLET PO ONE (11:00)
--- NOTE | 2016-05-20 11:46 | NUR ---
INTAKE STATUS PATIENT HAD ONE CUP OF JELLO FOR BREAKFAST AND LARGE AMOUNTS OF WATER. PATIENT DENIES NAUSEA OR STOMACH DISCOMFORT. ADVANCING DIET TO FULL LIQUID WITH TOAST AND CRACKERS FOR LUNCH.
--- NOTE | 2016-05-20 11:48 | NUR ---
CM CM VISITED PT. CM EXPLAINED ROLE AND PROVIDED CONTACT INFORMATION. PT IS HOPING TO RETURN HOME TODAY. PT DENIES NEEDS. PT IS AWARE TO CONTACT CM IF NEEDS ARISE.
--- NOTE | 2016-05-20 14:04 | NUR ---
INTAKE STATUS PATIENT ATE A GOOD LUNCH. ONE PIECE OF TOAST, CREAM OF CHICKEN SOUP AND PUDDING WITH LARGE AMOUNTS OF WATER. NO NAUSEA, TOLERATING WELL.
[2016-05-20 15:20] VITALS: BP 143/74; PULSE 93; RESP 18; TEMP 97.3; O2SAT 95
--- NOTE | 2016-05-20 16:20 | DSPDOC ---
General Date Date DATE: 05/20/16 TIME: 16:[address] Kena France Admitting Physician Dr. Kena France Consulting Physician Admitting Diagnosis gastroenteritis, elevated plasma lactate Discharge Diagnosis Gastroenteritis secondary to Norovirus Septic shock-quickly resolved with IV fluids Dehydration Leukocytosis-resolved Elevated hematocrit and hemoglobin-resolved Type 2 diabetes mellitus Tobaccoism Chronic pain COPD without exacerbation Recent sinus infection Mildly low calcium Procedures none Laboratory Laboratory Tests Test 05/19/16 17:09 05/19/16 17:36 05/19/16 17:43 05/19/16 21:57 Glucometer 131mg/dL (65-110) 167mg/dL (65-110) Plasma Lactate 6.0MMOL/L (0.6-2.2) Procalcitonin 0.05NG/ML White Blood Count 21.3T/MM3 (4.5-11.0) Red Blood Count 5.82M/MM3 (4.00-5.20) Hemoglobin 17.4GM/DL (12-16) Hematocrit 53.1% (36-46) Mean Corpuscular Volume 91.2UM3 (80-100) Mean Corpuscular Hemoglobin 29.9UUG (26-34) Mean Corpuscular Hemoglobin Concent 32.8GM/DL (31-37) RDW Standard Deviation 51.9FL (36.9-50.2) Platelet Count 270T/MM3 (130-400) Mean Platelet Volume 10.8UM3 (9.4-12.4) Immature Granulocyte % (Auto) % (0.0-0.5) Neutrophils (%) (Auto) % (33-66) Lymphocytes (%) (Auto) % (23-45) Monocytes (%) (Auto) % (0-9.0) Eosinophils (%) (Auto) % (0-4) Basophils (%) (Auto) % (0-2) Absolute Immature Granulocyte (auto T/MM3 (0.00-0.03) Absolute Neutrophils (auto) T/MM3 (1.8-7.7) Absolute Lymphocytes (auto) T/MM3 (1-4.8) Absolute Monocytes (auto) T/MM3 (0-0.8) Absolute Eosinophils (auto) T/MM3 (0-0.5) Absolute Basophils (auto) T/MM3 (0-0.2) Neutrophils % (Manual) 69.0% (33-66) Band Neutrophils % 13.0% (0-6) Lymphocytes % (Manual) 8.0% (23-45) Reactive Lymphocytes % 1.0% (0-0) Monocytes % (Manual) 8.0% (0-9.0) Basophils % (Manual) 1.0% (0-2) Absolute Neutrophils (Manual) 14.7T/MM3 (1.8-7.7) Band Neutrophils # 2.8T/MM3 Lymphocytes # (Manual) 1.7T/MM3 (1-4.8) Reactive Lymphocytes # 0.2T/MM3 (0-0) Monocytes # (Manual) 1.7T/MM3 (0-0.8) Basophils # (Manual) 0.2T/MM3 (0-0.2) Red Cell Morphology Comment Normal Turbidity < 20 (0-20) Sodium Level 143MEQ/L (134-144) Potassium Level 5.2MEQ/L (3.6-5) Chloride Level 99MEQ/L (98-107) Carbon Dioxide Level 27MEQ/L (22-30) Anion Gap 17MEQ/L (5-15) Blood Urea Nitrogen 23.0MG/DL (7-17) Creatinine 1.0MG/DL (0.7-1.2) Glomerular Filtration Rate Calc 57 BUN/Creatinine Ratio 23RATIO (6-26) Glucose Level 161MG/DL (65-110) Calculated Osmolality 282MOSM/KG (261-280) Calcium Level 9.0MG/DL (8.4-10.2) Total Bilirubin 0.90MG/DL (0.20-1.30) Icterus Index < 2 (0-7) Aspartate Amino Transf (AST/SGOT) 25U/L (14-36) Alanine Aminotransferase (ALT/SGPT) 32U/L (9-52) Alkaline Phosphatase 99U/L (38-126) Troponin I < 0.012ng/ml (0-0.12) C-Reactive Protein 20.4MG/L (0-9) Total Protein 8.0G/DL (6.3-8.2) Albumin 4.3G/DL (3.5-5.0) Globulin 3.7G/DL (2.4-3.6) Albumin/Globulin Ratio 1.2RATIO (1.1-2.2) Lipase 98U/L (23-300) Thyroid Stimulating Hormone (TSH) 3.60MIU/L (0.47-4.68) Chemistry Specimen Hemolysis 46 (0-25) Test 05/19/16 22:56 05/20/16 05:30 05/20/16 05:33 05/20/16 07:44 Plasma Lactate 2.7MMOL/L (0.6-2.2) 1.5MMOL/L (0.6-2.2) Glucometer 146mg/dL (65-110) White Blood Count 9.8T/MM3 (4.5-11.0) Red Blood Count 5.00M/MM3 (4.00-5.20) Hemoglobin 14.8GM/DL (12-16) Hematocrit 45.4% (36-46) Mean Corpuscular Volume 90.8UM3 (80-100) Mean Corpuscular Hemoglobin 29.6UUG (26-34) Mean Corpuscular Hemoglobin Concent 32.6GM/DL (31-37) RDW Standard Deviation 50.7FL (36.9-50.2) Platelet Count 188T/MM3 (130-400) Mean Platelet Volume 10.7UM3 (9.4-12.4) Immature Granulocyte % (Auto) 1.4% (0.0-0.5) Neutrophils (%) (Auto) 82.7% (33-66) Lymphocytes (%) (Auto) 10.0% (23-45) Monocytes (%) (Auto) 5.8% (0-9.0) Eosinophils (%) (Auto) 0.0% (0-4) Basophils (%) (Auto) 0.1% (0-2) Absolute Immature Granulocyte (auto 0.14T/MM3 (0.00-0.03) Absolute Neutrophils (auto) 8.1T/MM3 (1.8-7.7) Absolute Lymphocytes (auto) 1.0T/MM3 (1-4.8) Absolute Monocytes (auto) 0.6T/MM3 (0-0.8) Absolute Eosinophils (auto) 0.0T/MM3 (0-0.5) Absolute Basophils (auto) 0.0T/MM3 (0-0.2) Turbidity < 20 (0-20) Sodium Level 139MEQ/L (134-144) Potassium Level 4.0MEQ/L (3.6-5) Chloride Level 105MEQ/L (98-107) Carbon Dioxide Level 25MEQ/L (22-30) Anion Gap 9MEQ/L (5-15) Blood Urea Nitrogen 18.0MG/DL (7-17) Creatinine 0.6MG/DL (0.7-1.2) Glomerular Filtration Rate Calc 102 BUN/Creatinine Ratio 30RATIO (6-26) Glucose Level 162MG/DL (65-110) Calculated Osmolality 274MOSM/KG (261-280) Calcium Level 7.7MG/DL (8.4-10.2) Icterus Index < 2 (0-7) Lipase 53U/L (23-300) Chemistry Specimen Hemolysis 18 (0-25) Urine Collection Type Voided-not cc-midstr Urine Color Yellow (YELLOW) Urine Turbidity Clear (CLEAR) Urine pH 7.0 (5.0-8.0) Urine Specific [place]man 1.010 (1.015-1.025) Urine Protein Negative (NEGATIVE) Urine Glucose (UA) Negative (NEGATIVE) Urine Ketones Trace (NEGATIVE) Urine Blood Negative (NEGATIVE) Urine Nitrite Negative (NEGATIVE) Urine Bilirubin Negative (NEGATIVE) Urine Urobilinogen 0.2EU/DL (NORMAL) Urine Leukocyte Esterase Negative (NEGATIVE) Urinalysis Comment Microscopic not ind. Test 05/20/16 11:10 05/20/16 13:20 Glucometer 188mg/dL (65-110) Stool Cyclospora species Detection Negative (NEGATIVE) Stool Rotavirus A PCR Negative (NEGATIVE) Stool Adenovirus (PCR) Negative (NEGATIVE) Stool Astrovirus (PCR) Negative (NEGATIVE) Stool Campylobacter PCR Negative (NEGATIVE) Stool C. difficile Toxin (PCR) Negative (NEGATIVE) Stool Cryptosporidium PCR Negative (NEGATIVE) Stool E. coli Shiga Toxins Negative (NEGATIVE) Stool E coli O157 PCR N/a (NA/NEG) Stool Enterotoxigenic Ecoli PCR Negative (NEGATIVE) Stool Enteropathogenic E. coli (PCR Negative (NEGATIVE) Stool Enteroaggregative E. coli PCR Negative (NEGATIVE) Stool Entamoeba (PCR) Negative (NEGATIVE) Stool Giardia Lamblia PCR Negative (NEGATIVE) Stool Salmonella PCR Negative (NEGATIVE) Stool Sapovirus (PCR) Negative (NEGATIVE) Stool Plesiomonas shigelloides PCR Negative (NEGATIVE) Stool Shigella/EIEC (PCR) Negative (NEGATIVE) Stool Yersinia enterocolitica (PCR) Negative (NEGATIVE) Stool Vibrio (PCR) Negative (NEGATIVE) Stool Vibrio cholera (PCR) Negative (NEGATIVE) Stool Norovirus GI/GII PCR Detected (NEGATIVE) Microbiology Microbiology Date/Time Source Procedure Growth Status 05/19/16 22:56 Peripheral/Iv Start Blood Culture - Preliminary CULTURE INITIATED - RESULTS PENDING Resulted 05/19/16 17:44 Peripheral/Iv Start Blood Culture - Preliminary CULTURE INITIATED - RESULTS PENDING Resulted Blood cultures are pending Radiology PROCEDURE: CT ABD/PELVIS W/O CONTRAST: Encounter: Initial Comparison: None Technique: Axial CT images were performed through the abdomen and pelvis without intravenous contrast. Coronal and sagittal two-dimensional reformats. Automated Exposure Control and Iterative Reconstruction dose reducing techniques were utilized. Findings: The lung bases are clear. The liver is decreased in attenuation suggesting fatty infiltration. No gross bile duct dilatation. The gallbladder is surgically absent. The spleen, pancreas, adrenal glands and right kidney are within normal limits. Tiny low-attenuation left renal lesion is too small to characterize. No abdominal or pelvic lymphadenopathy. The bladder is unremarkable. No free fluid. No bowel obstruction. Bone windows are positive for degenerative and postoperative changes in the spine. Uterus is surgically absent. Appendix is reportedly surgically absent. Impression: No acute disease process seen. History of Present Illness 61 yo F with PMH of DM 1, HTN and GERD presented to the ED with vomiting 1 hour. Patient states she began very violently vomiting about an hour ago, has vomited 4 times in one hour. She has significant abdominal pain with this, no diarrhea. She does not believe she has a fever. She states her heart rate does run fast, typically about 114 bpm. She is diabetic, blood sugar was 90 before lunch, so her gave her some orange juice with sugar mixed into it. She is also on prednisone for sinus infection, she finished a course of ABX about 1 week ago, but she doesn't know what it was. She's never had cramping or vomiting like this before, she also reports all over body aches and chills. Denies any abdominal trauma. CT abd pelvis in ED was negative for acute findings. She was found to have lactic acidosis and elevated WBC's in the ED she was admitted for further evaluation and treatment. Hospital Course I have reviewed the H&P from admission. I have reviewed the medical history. The patient has type 2 diabetes, not type 1 diabetes. She also has hypertension, GERD, chronic back pain, history of back surgery, morbid obesity, COPD and hyperlipidemia. On social history, the patient is a smoker and is . Family history is significant for multiple family members with vomiting and diarrheal illness recently. Comprehensive review of systems is negative other than below. The patient states that she was feeling well until approximately 2 hours prior to admission when she started having sudden uncontrolled vomiting. She felt achy all over and was shaky. Blood sugar was in the 90s which is low for her. She had not had any diarrhea. She been eating and drinking well prior. She had been taking care of her [id number] grandson who had diarrhea for 3 days. She denied any shortness of breath. She denied any chest pain. The patient presented to the emergency room and had signs and symptoms of septic shock. She had white count of 21,000, lactate 6.0, tachycardia with heart rate up to 142. Blood cultures were obtained and are negative so far. IV fluids were initiated. Repeat lactates did normalize. The patient started feeling better fairly quickly. Heart rate normalized. IV fluids were discontinued in the morning and she was able to drink fluids very well. She was able to eat a light lunch without any nausea or vomiting. She did have some soft stools today which were sent for GI panel and was positive for Norovirus. This afternoon, she looks remarkably well. She is eating and drinking without difficulty although appetite is not back to normal. She is remaining hydrated off of IV fluids. Heart rate has normalized. She is breathing well on room air. She denies chest pain or lightheadedness. She denies any shortness of breath. White count normalized this morning. She had signs of dehydration with elevated hemoglobin and hematocrit which have improved. She had mild elevation of BUN at 23 and not has normalized. Creatinine has improved from 1.0 down to 0.8. The patient has chronic low back pain and states her pain control is adequate on her usual home medications. The patient is quite adamant that she is going home today. Fortunately, she looks well today and appears stable for dismissal to home with close follow-up with her primary care doctor. Her will be helping her at home. On exam she is alert and oriented and in no acute distress. HEENT reveals sclerae to be anicteric and oropharynx is moist. Neck is supple. Chest is clear to auscultation. Cardiovascular reveals a regular rate and rhythm. Abdomen is soft and nontender. Extremities are free of edema. We'll dismiss to home in stable condition Advance to 1800-calorie ADA diet as tolerated. Encourage fluid intake. The patient is not to restart her metformin until Friday, and then only if she is feeling better. She is to decrease her insulin with meals. I.e. if she eats half of her normal amount of lunch she should take half the normal amount of insulin with lunch. Back to her usual appetite, she should resume her usual insulin dosage. She can restart her furosemide and potassium tomorrow if she is drinking well and feeling dehydrated. I discussed with her and the patient signs and symptoms that would require either a call to her doctor or return to the emergency room. We'll dismiss to home today with her . Greater than 1 hour of time was spent seeing and evaluating the patient today, reviewing records, reviewing lab, and arranging discharge. Problems: (1) Viral gastroenteritis Status: Acute Assessment & Plan: WBC's could be reactive, CT scan of abdomen negative for acute findings. Supportive care with IVF and antiemetics at this time. CLD if tolerated. Awaiting UA. Check blood CX. (2) Lactic acidosis Status: Acute Assessment & Plan: Give aggressive IVF. and repeat in AM (3) HTN (hypertension) Status: Chronic (4) GERD (gastroesophageal reflux disease) Status: Chronic Assessment & Plan: continue home medications (5) Tobacco dependence Status: Acute (6) Morbid obesity with BMI of 40.0-44.9, adult Status: Chronic Code Status Full Code Home Meds Reported Medications Ondansetron (Zofran Odt) 4 Mg Tab.rapdis, 4 MG PO Q8H Y for NAUSEA 05/19/16 Fluticasone Propionate (Fluticasone Prop 50 mcg/actuation Nasal [place]) 120 [place] /16 G [place], 2 SPRAY EA NOSTRIL DAILY 05/19/16 Insulin Aspart (Novolog Flexpen) 1 Unit Pen, 11 UNIT SQ HS 05/19/16 Insulin Aspart (Novolog Flexpen) 1 Unit Pen, 13 UNIT SQ WS 05/19/16 Insulin Aspart (Novolog Flexpen) 1 Unit Pen, 11 UNIT SQ WL 05/19/16 Montelukast Sodium (Montelukast Sodium) 10 Mg Tablet, 10 MG PO HS 05/19/16 Cetirizine HCl (Cetirizine HCl) 10 Mg Tablet, 10 MG PO DAILY 05/19/16 Nitroglycerin (Nitroglycerin) 0.4 Mg Tab.subl, 0.4 MG PO Q5MIN Y for CHEST TIGHTNESS 03/09/16 Albuterol Sulfate (Albuterol Sulfate) 2.5 Mg/3 Ml Vial.neb, 2.5 MG PO Q6H Y for PRN ORDERS 03/09/16 Mometasone Furoate (Asmanex Hfa) 13 Gm Hfa.aer.ad, 2 PUFF INH BID Y for PRN ORDERS 03/09/16 Insulin Glargine,Hum.rec.anlog (Toujeo Solostar) 300 Unit/1 Ml Insuln.pen, 20 UNIT SQ HS 03/09/16 Insulin Aspart (Novolog Flexpen) 1 Unit Pen, 11 UNIT SQ WB 03/09/16 Sertraline (Sertraline) 100 Mg Tablet, 100 MG PO HS 08/08/15 Tapentadol HCl (Nucynta ER) 200 Mg Tab.er.12h, 200 MG PO Q12HR 08/08/15 Aspirin (Aspirin) 81 Mg Tab.chew, 81 MG PO DAILY 01/04/15 Gabapentin (Gabapentin) 800 Mg Tablet, 800 MG PO TID 01/04/15 Spironolactone (Spironolactone) 25 Mg Tablet, 25 MG PO DAILY 01/04/15 Furosemide (Furosemide) 40 Mg Tablet, 40 MG PO BID 01/04/15 Potassium Chloride (Potassium Chloride) 20 Meq Tablet.er, 20 MEQ PO BIDWM 05/16/14 Oxycodone Hcl (Oxycodone Hcl) 15 Mg Tablet, 15-30 MG PO Q3-4H 07/18/13 Atorvastatin Calcium (Lipitor) 10 Mg Tablet, 10 MG PO DAILY 07/18/13 Metoclopramide Hcl (Metoclopramide Hcl) 10 Mg Tablet, 10 MG PO QID 11/06/11 Baclofen (Baclofen) 10 Mg Tablet, 10 MG PO QID 06/06/11 Lansoprazole (Prevacid) 30 Mg Capsule.dr, 30 MG PO BID 09/02/09 Lisinopril (Lisinopril) 10 Mg Tablet, 10 MG PO DAILY 09/02/09 Discontinued Reported Medications Metformin HCl (Metformin HCl ER) 500 Mg Tab.er.24h, 500 MG PO BID 01/04/15 Face to Face Encounter I met with patient on the day of dismissal and discussed follow up appointments , medications, and safety plan. Discharge Disposition Dismiss to home in stable condition KENA FRANCE MD May 20, 2016 16:17
--- NOTE | 2016-05-20 16:24 | NUR ---
DISMISSAL TO HOME VSS. RA. PATIENT REPORTS BACK PAIN BUT THAT IS CHRONIC. DENIES ABDOMINAL PAIN. DISCHARGE INSTRUCTIONS DISCUSSED WITH PT AND FAMILY. PATIENT OWN PAIN MED RETURNED TO PATIENT AND . TAKEN TO FRONT ENTRANCE VIA WHEELCHAIR. TAKEN HOME BY VIA PRIVATE CAR.
[2016-05-20] MEDS ORDERED: ATORVASTATIN 10 MG TABLET PO SCH (22:00)
--- NOTE | 2016-05-21 15:20 | NUR ---
CM CM LVM
--- NOTE | 2016-05-22 15:39 | NUR ---
CM CM LVM
--- NOTE | 2016-05-23 14:14 | NUR ---
CM LVM X3
== END 2016-05-20 16:24 | disposition home or self-care (01) ==
LOC: ED 16:58 → MED 19:52 → EDHOLD 19:52
PROVIDERS: ADMIT Internal Medicine; ATTEND Internal Medicine
DX: A08.11 Acute gastroenteropathy due to Norwalk agent (principal); R65.21 Severe sepsis with septic shock; A41.9 Sepsis, unspecified organism; E86.0 Dehydration; R71.8 Other abnormality of red blood cells; E11.9 Type 2 diabetes mellitus without complications; I10 Essential (primary) hypertension; G89.29 Other chronic pain; F17.210 Nicotine dependence, cigarettes, uncomplicated; J44.9 Chronic obstructive pulmonary disease, unspecified; E83.51 Hypocalcemia; E78.00 Pure hypercholesterolemia, unspecified; K21.9 Gastro-esophageal reflux disease without esophagitis; E66.01 Morbid (severe) obesity due to excess calories; Z68.42 Body mass index [BMI] 45.0-49.9, adult; Z79.52 Long term (current) use of systemic steroids; Z79.82 Long term (current) use of aspirin; Z79.4 Long term (current) use of insulin; Z79.899 Other long term (current) drug therapy
CPT/HCPCS: 36415; 74176; 80048; 80053; 81003; 82948; 83605; 83690; 84145; 84443; 84484; 85025; 86140; 87040; 87507; 93005; 96361; 96372; 96374; 96375; 99218; 99284; J0780; J1817; J2405; J7030

== ENCOUNTER → 2016-06-06 | Outpatient (CLI) | payer BC, MEDICARE ==
[~2016-06-06] MED LIST changes: -AZIT250T6 PO; +CETI-269 PO; +FLUT16SP EA NOSTRIL; -METF500T7 PO; -METH4TAB15 PO; +MONT10TA25 PO; +ONDA4TAB7 PO
[2016-06-06 17:39] LABS: BASOPHILS % (AUTO) 0.1 % (0-2); HCT - HEMATOCRIT 43.4 % (36-46); HGB - HEMOGLOBIN 14.3 GM/DL (12-16); IMMATURE GRANULOCYTE # (AUTO) 0.06 T/MM3 (0.00-0.03); IMMATURE GRANULOCYTE % (AUTO) 0.7 % (0.0-0.5); LYMPHOCYTES # (AUTO) 2.2 T/MM3 (1-4.8); LYMPHOCYTES % (AUTO) 23.9 % (23-45); MEAN CORPUSCULAR HGB 30.2 UUG (26-34); MEAN CORPUSCULAR HGB CONC(MCHC 32.9 GM/DL (31-37); MEAN CORPUSCULAR VOLUME 91.8 UM3 (80-100); MONOCYTES # (AUTO) 0.9 T/MM3 (0-0.8); MONOCYTES % (AUTO) 9.6 % (0-9.0); NEUTROPHILS % (AUTO) 65.7 % (33-66); RED BLOOD COUNT 4.73 M/MM3 (4.00-5.20); WBC - WHITE BLOOD COUNT 9.1 T/MM3 (4.5-11.0)
[2016-06-06 17:48] LABS: LACTATE - LACTIC ACID 1.1 MMOL/L (0.6-2.2)
[2016-06-06 17:49] LABS: ALBUMIN 3.8 G/DL (3.5-5.0); ALBUMIN/GLOBULIN RATIO 1.2 RATIO (1.1-2.2); ALKALINE PHOSPHATASE 99 U/L (38-126); ALT (SGPT) 36 U/L (9-52); ANION GAP 9 MEQ/L (5-15); AST (SGOT) 18 U/L (14-36); BUN/CREATININE RATIO 15 RATIO (6-26); CALCIUM 8.9 MG/DL (8.4-10.2); CHLORIDE 100 MEQ/L (98-107); CK - CPK 62 U/L (30-135); CO2 - CARBON DIOXIDE 31 MEQ/L (22-30); CREATININE 0.6 MG/DL (0.7-1.2); GLOMERULAR FILTRATION RATE 102; GLUCOSE 161 MG/DL (65-110); POTASSIUM 4.1 MEQ/L (3.6-5); SODIUM 140 MEQ/L (134-144); TOTAL PROTEIN 7.1 G/DL (6.3-8.2)
[2016-06-06 17:57] LABS: BLOOD, URINE NEGATIVE (NEGATIVE); COLOR,URINE YELLOW (YELLOW); LEUKOCYTE ESTERASE ,URINE NEGATIVE (NEGATIVE); NITRITE,URINE NEGATIVE (NEGATIVE); UROBILINOGEN,URINE 0.2 EU/DL (NORMAL)
== END ==
LOC: LAB 17:16
PROVIDERS: ATTEND Family Medicine
DX: M35.3 Polymyalgia rheumatica (principal)
CPT/HCPCS: 36415; 80053; 81003; 82550; 83605; 85025; 85652